=== PATIENT | male | born 1965 | race Caucasian/White ===

== ENCOUNTER → 2019-05-03 13:24 | Outpatient (CLI) | payer MEDICARE, MEDICAID, SELFPAY ==
[2019-05-03 13:40] LABS: Basophils % 0.4 % (0.1-2.0); Eosinophils # 0.2 K/mm3 (0.0-0.4); Eosinophils % 2.3 % (0.1-12.0); Hematocrit 50.6 % (42.0-52.0); Hemoglobin 16.3 g/dL (14.1-18.0); Lymphocytes # 2.7 K/mm3 (0.7-4.5); Lymphocytes % 36.1 % (10-50); Mean Corpuscular HGB Conc 32.2 g/dL (31.8-35.4); Mean Corpuscular Hemoglobin 32.6 pg (27.0-31.2); Mean Corpuscular Volume 101.2 fl (80-94); Mean Platelet Volume 8.8 fl (7.4-10.4); Monocytes # 0.5 K/mm3 (0.1-1.0); Neutrophils # 4.1 K/mm3 (1.8-7.8); Neutrophils % 55.2 % (37.0-80.0); Platelet Count 204 K/mm3 (142-424); Red Blood Count 4.99 M/mm3 (4.60-6.20); Red Cell Distribution Width 13.7 % (11.5-17.5); White Blood Count 7.5 K/mm3 (4.8-10.8)
[2019-05-03 15:12] LABS: Alanine Aminotransferase 74 U/L (12-78); Albumin Level 3.9 gm/dL (3.4-5.0); Albumin/Globulin Ratio 1.1 (1.1-1.8); Alkaline Phosphatase 104 U/L (46-116); Aspartate Amino Transferase 46 U/L (15-37); Bilirubin,Total 0.4 mg/dL (0.2-1.0); Blood Urea Nitrogen 9 mg/dL (7-18); Calcium 9.4 mg/dL (8.5-10.1); Carbon Dioxide 32 mmol/L (21.0-32.0); Chloride 97 mmol/L (98-107); Chol/HDL Ratio 3.5 (1-3.5); Cholesterol 174 mg/dL (140-200); Creatinine,Serum 0.78 mg/dL (0.70-1.30); Estimated Glomerular Filt Rate 104 ml/min (>60); GFR (African American) 126 ML/MIN (>60); Globulin 3.6 gm/dl (1.3-3.2); Glucose 121 mg/dL (74-106); HDL Cholesterol 50 mg/dL (27-67); LDL Cholesterol 109 mg/dL (0-130); Sodium 136 mmol/L (136-145); T4 (Thyroxine) 16.7 ug/dl (4.7-13.3); Thyroid Stimulating Hormone 1.94 uIU/ml (0.358-3.740); Total Protein,Serum 7.5 gm/dL (6.4-8.2); Triglycerides 75 mg/dL (30-200); VLDL Cholesterol 15 mg/dL (0-40)
[2019-05-04 09:15] LABS: Hep A Ab, IgM Negative (Negative); Hepatitis B Core Antibody IgM Negative (Negative); Hepatitis B Surface Antigen Negative (Negative)
[2019-05-04 17:14] LABS: Hepatitis C Antibody >11.0 s/co ratio (0.0-0.9); Vitamin D 25 Hydroxy 17.6 ng/mL (30.0-100.0)
== END ==
PROVIDERS: Visit Provider Nurse Practitioner Family
DX: R51 Headache (principal); R53.1 Weakness; R53.83 Other fatigue; I10 Essential (primary) hypertension; E55.9 Vitamin D deficiency, unspecified
CPT/HCPCS: 80053; 80061; 80074; 82652; 84436; 84443; 85025

== ENCOUNTER → 2019-05-18 11:52 | Outpatient (CLI) | payer MEDICARE, MEDICAID, SELFPAY ==
--- NOTE | 2019-05-18 12:10 | CT_ITS ---
PROCEDURE: CT CHEST WO CON CLINICAL INDICATION: dyspnea, chest pain COMPARISON: No exams were available for comparison TECHNIQUE: Axial images obtained with sagittal and coronal reformats. All CT scans at the facility use one or more dose reduction, viz: automated exposure control, ma/kV adjustment per patient size (including targeted exams where dose is matched to indication, i.e. head), or iterative reconstruction technique. FINDINGS: HEART: Unremarkable. Normal heart size. No significant pericardial effusion. There is moderate coronary artery calcification. MEDIASTINAL AND HILAR STRUCTURES: No mediastinal or hilar mass evident. No dominant adenopathy. AORTA: No acute finding. No thoracic aortic aneurysm or dissection evident LUNGS:There are small ill-defined opacities and peribronchial distribution in the superior segment right lower lobe suggesting acute focal pneumonia. There is a calcified granuloma in the lingula. PLEURAL SPACES: No significant effusion. No evidence of pneumothorax. BONY STRUCTURES: There mild degenerate changes lower thoracic spine and upper lumbar spine. LYMPH NODES: No enlarged lymph nodes evident. UPPER ABDOMEN: There is a hypodense lesion involving the right adrenal gland likely adrenal cyst or adenoma in view of the CT number, left adrenal gland is normal. ADDITIONAL FINDINGS: No other significant abnormalities. IMPRESSION: Findings most consistent with acute minimal pneumonia involving the superior segment right lower lobe Dictated by: Dr. Sd Tobar MD 05/18/2019 12:[address] Sd Tobar MD in [place] 05/18/2019 12:42
[2019-05-18 15:31] LABS: T4 (Thyroxine) 14.9 ug/dl (4.7-13.3); Thyroid Stimulating Hormone 0.65 uIU/ml (0.358-3.740)
[2019-05-18 16:58] LABS: Hemoglobin A1C 5.9 % (0.0-7.0)
[2019-05-20 19:08] LABS: Hepatitis C Genotype 1a (.)
== END ==
PROVIDERS: Nurse Practitioner Family; PCP Emergency Medicine; Visit Provider Internal Medicine Cardiovascular Disease
DX: F17.200 Nicotine dependence, unspecified, uncomplicated (principal); I10 Essential (primary) hypertension; R06.09 Other forms of dyspnea; R07.9 Chest pain, unspecified; R94.31 Abnormal electrocardiogram [ECG] [EKG]; Z82.49 Family history of ischemic heart disease and other diseases of the circulatory system; R74.8 Abnormal levels of other serum enzymes; R73.9 Hyperglycemia, unspecified
CPT/HCPCS: 36415; 71250; 83036; 84436; 84443; 87522

== ENCOUNTER → 2019-05-30 06:16 | Outpatient (CLI) | payer MEDICARE, MEDICAID, SELFPAY | PROVIDERS: PCP Emergency Medicine; Visit Provider Internal Medicine Cardiovascular Disease | DX: R06.09 Other forms of dyspnea; R07.9 Chest pain, unspecified | CPT/HCPCS: A9502 ==

== ENCOUNTER → 2023-06-14 15:15 | Outpatient (CLI) | payer MEDICARE, SELFPAY ==
[2023-06-14 20:29] LABS: Amphetamine/Metha Screen,Urine Negative ng/ml (<1000)
[2023-06-14 20:30] LABS: Barbiturates Screen,Urine Negative ng/ml (<200)
[2023-06-14 20:31] LABS: Cannabinoid Screen,Urine Positive ng/ml (<50)
[2023-06-14 20:32] LABS: Cocaine Screen,Urine Negative ng/ml (<300); Methadone Screen,Urine Negative ng/ml (<300)
[2023-06-14 20:33] LABS: Opiate Screen,Urine Negative ng/ml (<300)
[2023-06-14 20:34] LABS: Phencyclidine Screen,Urine Negative ng/ml (<25)
[2023-06-14 20:43] LABS: Benzodiazepines Screen,Urine Negative ng/ml (<200); Microalbumin/Creatinine Ratio 71.5
[2023-06-14 20:52] LABS: Creatinine,Urine Random 20 mg/dL (Not Estab.)
== END ==
LOC: LAB.DROPOF 06-27 15:16
PROVIDERS: PCP Internal Medicine; Visit Provider Internal Medicine
DX: Z79.899 Other long term (current) drug therapy; I10 Essential (primary) hypertension; Z72.0 Tobacco use
CPT/HCPCS: 80307; 82043; 82570

== ENCOUNTER → 2023-07-12 18:27 | Outpatient (CLI) | payer MEDICARE, SELFPAY ==
[2023-07-12 17:54] LABS: Benzodiazepines Screen,Urine Negative ng/ml (<200)
[2023-07-12 17:55] LABS: Barbiturates Screen,Urine Negative ng/ml (<200)
[2023-07-12 17:56] LABS: Cannabinoid Screen,Urine Positive ng/ml (<50); Methadone Screen,Urine Negative ng/ml (<300)
[2023-07-12 17:57] LABS: Cocaine Screen,Urine Negative ng/ml (<300)
[2023-07-12 17:58] LABS: Opiate Screen,Urine Negative ng/ml (<300)
[2023-07-12 17:59] LABS: Phencyclidine Screen,Urine Negative ng/ml (<25)
[2023-07-12 18:11] LABS: Amphetamine/Metha Screen,Urine Negative ng/ml (<1000)
== END ==
PROVIDERS: PCP Nurse Practitioner Family; Visit Provider Nurse Practitioner Family
DX: Z79.899 Other long term (current) drug therapy (principal)
CPT/HCPCS: 80305

== ENCOUNTER → 2023-08-25 08:40 | Outpatient (POV) | payer MEDICARE, SELFPAY ==
--- NOTE | 2023-08-25 09:31 | EXP.PAIN.OV ---
HPI Data of Consult Patient: new to practice Consult date: 08/25/23 Requesting Physician: Karen Pelayo APRN Primary Care Provider: Rafael Swenson DO Consult Narrative Reason for consult: Low back pain, hip pain History of present illness: Mr. Castro is a 57 year old male who presents today as a new patient. He is a referral from Dr. Do's office. Today he rates his pain a 9 out of 10. Patient states his pain is all in his low back send denies radiating symptoms into his legs. He states that it will go into his hips. He states sitting makes his pain worse and does describe it as a sharp achy sensation with numbness. He states prolonged walking seems to irritate it and that he frequently cannot sleep due to the pain. He states the pain is always low on his back around his belt area. Patient states his pain has been going on for years unrelated to any specific injury or trauma. Patient states he has tried [id number] Tylenol and ibuprofen along with heat and ice and topicals with minimal relief. Patient states that he is not able to tolerate physical therapy due to very limited range of motion and pain. Patient did previously have a cervical [place] [address] Soto. Patient denies any recent imaging. Patient states he does not have any history of heart or kidney related problems. Patient is currently managed with oxycodone 5 mg 3 times a day and gabapentin 300 mg 3 times a day from his primary care provider along with Flexeril 10 mg 3 times daily as needed. Patient denies any side effects from this medication. His Ori has been reviewed and is appropriate. CC: Karen Pelayo APRN [facility] Disclaimer: The information contained in this section may have been updated after the patient was seen, as this information can be updated by other users. Social History Smoking Status: Current every day smoker tobacco type: cigarettes packs per day: 1 alcohol intake: never substance use type: marijuana and opiates current occupational status: unemployed and disabled Travel in the last 8 weeks: Inside the [place] Review of Systems Review of Systems Review of systems:: pertinent systems reviewed and negative unless documented below Review of systems (narrative): Review of Systems: General: No recent weight changes, no fever, no sleep disturbances Respiratory: No cough, no shortness of air, no recurring pulmonary infections Cardiovascular/peripheral vascular: No chest pain, no palpitations, no edema, no shortness of breath Gastrointestinal: No new onset incontinence, normal bowel movements reported Genitourinary: No new onset incontinence Musculoskeletal: Low back pain, hip pain Psychiatric: [Normal mood/affect] Neurological: [Denies weakness in extremities], [denies balance issues] Meds Home Medications and Allergies Home Medications Medication Instructions Recorded Confirmed Type cholecalciferol (vitamin D3) 125 125 mcg PO DAILY 90 days #90 caps 06/14/23 08/08/23 Rx mcg (5,000 unit) capsule losartan 25 mg tablet 25 mg PO DAILY 90 days #90 tabs 07/12/23 08/08/23 Rx cyclobenzaprine 10 mg tablet 10 mg PO TID PRN muscle spasm #60 08/09/23 08/09/23 Rx tabs gabapentin 300 mg capsule 300 mg PO TID 30 days #90 caps 08/09/23 08/09/23 Rx oxycodone 5 mg tablet 5 mg PO Q8H PRN chronic back pain 08/09/23 08/09/23 Rx 23 days #69 tabs New Prescriptions to Start Prescriptions: Allergies Allergy/AdvReac Type Severity Reaction Status Date / Time tramadol [TRAMADOL] Allergy Mild NA-NAUSEA/V Verified 08/08/23 14:07 OMITING Objective Narrative: Physical Exam: General: Alert and oriented x3, no acute distress, pleasant and cooperative Lungs: Respirations even and unlabored, symmetrical chest expansion Eyes: PERRL Musculoskeletal: Flexion and extension of lumbar [spine] somewhat guarded secondary to pain, [antalgic gait noted] extreme point tenderness along bilateral SIs with positive bilateral Toño's, Jennifer's, Gaenslen's, compression and distraction exam, positive Kemps sign Neurological: Speech clear, no gross sensory deficit Assessment and Plan *Assessment and plan (1) Low back pain: Problem Comment: Will refill his gabapentin. Additionally he is on oxycodone and cyclobenzaprine. I am concerned about the use of the scheduled medications and individual does have a past history of substance abuse. However I also feel that he has real pain. Will do a random pill count as well as a urine drug screen on him. Status: Acute Qualifiers: Chronicity: chronic Back pain laterality: bilateral Sciatica presence: with sciatica Sciatica laterality: bilateral sciatica Qualified Code(s): M54.42 - Lumbago with sciatica, left side; M54.41 - Lumbago with sciatica, right side; G89.29 - Other chronic pain Category: Medical Code(s): M54.50 - Low back pain, unspecified (2) Bilateral sacroiliitis: Status: Acute Category: Medical Code(s): M46.1 - Sacroiliitis, not elsewhere classified Plan Patient is experiencing significant pain in his low back and hips with limited range of motion. Patient did have extreme point tenderness along his bilateral SIs and a positive bilateral Toño's, Jennifer's, Gaenslen's, compression extraction exam as well as a positive Kemps test. I have discussed with the patient that I do believe he would get beneficial relief with bilateral SI injections. Risk and benefits were discussed with the patient however he is not interested in this option. Patient states that he does not care for needles. I have discussed with the patient that I will send in a 14-day supply of meloxicam 15 mg daily. Patient has been counseled to discontinue all other NSAIDs while taking this medication and to take it with food to minimize GI upset. Patient will return to clinic in 2 weeks for reevaluation of symptoms and plan of care. Patient has been instructed to contact the clinic with any concerns before the next appointment. Dr. Vincent has reviewed this note and agrees with this plan of care. This note was dictated using voice recognition software and make contain errors or omissions.
[2023-08-25 09:48] VITALS: BP 185/99; PULSE 112; RESP 18; O2SAT 99; BMI 24.3
== END ==
LOC: SC.PAIN 08:43
PROVIDERS: PCP Internal Medicine; Visit Provider Nurse Practitioner Family
DX: M54.42 Lumbago with sciatica, left side (principal); M54.41 Lumbago with sciatica, right side; G89.29 Other chronic pain; M46.1 Sacroiliitis, not elsewhere classified
CPT/HCPCS: 99202; G0463

== ENCOUNTER 2023-10-06 14:41 | Emergency (ER) | payer MEDICARE, SELFPAY ==
[2023-10-06] VITALS (7 sets, daily range): BP systolic 104–126; BP diastolic 61–80; PULSE 107–123; RESP 16–22; TEMP 36.9–37.1; O2SAT 89–99; BMI 23.8
--- NOTE | 2023-10-06 15:19 | CT_ITS ---
FINAL REPORT CLINICAL HISTORY: legs weak COMPARISON: None FINDINGS: CT LUMBAR SPINE WITH CONTRAST TECHNIQUE: Axial images were performed through the lumbar spine by computed tomography after the injection of intrathecal contrast. Sagittal and coronal reconstruction images were also performed. This study was performed with techniques to keep radiation doses as low as reasonably achievable, (ALARA). Individualized dose reduction techniques using automated exposure control or adjustment of mA and/or kV according to the patient's size were employed. There is moderate degenerative change. Multilevel osteophytes are noted. T12-L1: Annular disc bulge, facet arthropathy, and osteophytes. Mild bilateral neuroforaminal narrowing. L1-L2: Annular disc bulge, facet arthropathy, and osteophytes. Mild bilateral neuroforaminal narrowing. L2-L3: Annular disc bulge, facet arthropathy, and osteophytes. Mild right and severe left neuroforaminal narrowing. L3-L4: Annular disc bulge, facet arthropathy, and osteophytes. Moderate bilateral neuroforaminal narrowing. Mild central canal stenosis with AP diameter of the thecal sac of 7 mm. L4-L5: Annular disc bulge, facet arthropathy, and osteophytes. Severe bilateral neuroforaminal narrowing. Mild central canal stenosis with AP diameter of the thecal sac of 7 mm. L5-S1: Annular disc bulge, facet arthropathy, and osteophytes. Mild bilateral neuroforaminal narrowing. There is a 2.4 cm right adrenal mass with nonspecific appearance. There is a questionable mass medial liver. IMPRESSION: Multilevel degenerative disc disease as above. Central canal stenosis at L3-4 and L4-5. 2.4 cm right adrenal mass, differential includes adenoma versus metastasis and questionable liver mass. Recommend adrenal mass protocol CT for further evaluation. Reviewed, Interpreted and Dictated by Jonas Diez III, MD Transcribed by Nita Harrison Authenticated and [facility]
--- NOTE | 2023-10-06 15:21 | HMH.EDGENADL ---
Discharge Plan Disposition Patient Disposition: Xfer Short-Term Hosp Chief Complaint: Weakness Prescriptions Prescriptions: No Action cyclobenzaprine 10 mg tablet 10 mg PO TID PRN (Reason: muscle spasm) Qty: 60 0RF gabapentin 300 mg capsule 300 mg PO TID 30 Days Qty: 90 1RF losartan 25 mg tablet 25 mg PO DAILY 90 Days Qty: 90 1RF oxycodone 5 mg tablet 5 mg PO Q4-6H PRN (Reason: chronic back pain) 30 Days Qty: 120 0RF cholecalciferol (vitamin D3) 125 mcg (5,000 unit) capsule 125 mcg PO DAILY 90 Days Qty: 90 2RF Referrals Follow up/Referrals: Provider,Referral, [Referring] - See instructions Clinical Impressions Clinical Impression: Bilateral leg weakness, Rhabdomyolysis, Acute UTI Discharge ED Provider: Smith Berrios General Adult HPI General Chief complaint: Weakness Stated complaint: GENERALIZED WEAKNESS Time Seen by Provider: 10/06/23 15:01 History of Present Illness HPI narrative: This is a 57-year-old male with history of hypertension, hyperlipidemia, hepatitis C secondary to IV drug abuse in the remote past, chronic lower back pain presenting with weakness. Patient states he has been feeling generally weak over the past couple of days. States that he laid on his bathroom floor for the past 24 hours and was basically just crawling around because he felt so weak all over. States that his left knee feels weaker than his right knee, but denies loss of function. Also denies bowel or bladder dysfunction or saddle anesthesia. Has had associated bilateral upper extremity pain near his biceps, but again, no weakness or loss of function. Has not had any recent injuries, falls, or trauma in any other degree. No fevers, chills, shortness of breath, or any other concerns. Related Data Previous Rx's Medication Instructions Recorded cholecalciferol (vitamin D3) 125 125 mcg PO DAILY 90 days #90 caps 06/14/23 mcg (5,000 unit) capsule cyclobenzaprine 10 mg tablet 10 mg PO TID PRN muscle spasm #60 10/04/23 tabs gabapentin 300 mg capsule 300 mg PO TID 30 days #90 caps 10/04/23 losartan 25 mg tablet 25 mg PO DAILY 90 days #90 tabs 10/04/23 oxycodone 5 mg tablet 5 mg PO Q4-6H PRN chronic back 10/04/23 pain 30 days #120 tabs Allergies Allergy/AdvReac Type Severity Reaction Status Date / Time tramadol [TRAMADOL] Allergy Mild NA-NAUSEA/V Verified 10/03/23 12:59 OMITING PFSH PFSH Disclaimer: The information contained in this section may have been updated after the patient was seen, as this information can be updated by other users. Medical History (Updated 10/06/23 @ 19:45 by Smith Berrios MD) History of substance abuse Vitamin D deficiency HTN (hypertension) Hepatitis C Surgical History H/O cervical spinal arthrodesis Family History Other Unknown family medical history Social History Smoking Status: Current every day smoker tobacco type: cigarettes packs per day: 1 alcohol intake: never substance use type: marijuana and opiates current occupational status: unemployed Travel in the last 8 weeks: None ROS Obtained: Yes All systems reviewed & no additional complaints except as documented Physical Exam General General appearance: alert and in no apparent distress Comment: Disheveled, unkempt Head Head exam: atraumatic and normocephalic Eye Eye exam: Present normal appearance, PERRL and EOMI ENT ENT exam: Present mucous membranes dry Neck Neck exam: Present normal inspection, full ROM and trachea midline Respiratory Respiratory exam: Present normal lung sounds bilaterally; Absent respiratory distress, wheezes, stridor, accessory muscle use or prolonged expiratory phase Cardiovascular Cardiovascular exam: Present normal rhythm and tachycardia Abdominal Exam Abdominal exam: Present soft; Absent distention, tenderness, guarding, rebound or rigidity Extremities Exam Extremities exam: Absent edema Back Exam Back exam: Present tenderness (T and L-spine) Neurological Exam Neurological exam: Present alert, oriented X3, CN II-XII intact and normal gait; Absent motor sensory deficit Skin Skin exam: Present warm and dry; Absent diaphoresis or erythema Medical Decision Making Medical Records Medical records reviewed: Yes I reviewed the patient's medical records. Ori Inquiry Pt receiving controlled substance: No Ori was queried for this patient: No Vital Signs: 10/06/23 14:42 10/06/23 15:06 10/06/23 15:30 Temperature 98.8 F Temperature Source Oral Pulse Rate 120 H 117 H Pulse Rate [Right] 123 H Respiratory Rate 17 22 Blood Pressure 104/68 L 126/80 Blood Pressure [Right Arm] 104/68 L Blood Pressure Mean 95 Blood Pressure Mean [Right Arm] 80 02 Sat by Pulse Oximetry 89 L 96 96 Oxygen Delivery Method Room Air Room Air Room Air 10/06/23 16:30 Temperature Temperature Source Pulse Rate 107 H Pulse Rate [Right] Respiratory Rate Blood Pressure 104/61 L Blood Pressure [Right Arm] Blood Pressure Mean Blood Pressure Mean [Right Arm] 02 Sat by Pulse Oximetry 99 Oxygen Delivery Method Room Air Lab Data Lab Results 10/06/23 14:55: WBC 17.9 H, RBC 5.03, Hgb 17.1, Hct 51.7, MCV 102.7 H, MCH 34.1 H, MCHC 33.2, RDW 13.6, Plt Count 151, MPV 8.8, Neut % (Auto) 87.3 H, Lymph % (Auto) 6.0 L, [place] % (Auto) 5.4, Eos % (Auto) 0.9, Baso % (Auto) 0.4, Neut # (Auto) 15.6 H, Lymph # (Auto) 1.1, [place] # (Auto) 1.0, Eos # (Auto) 0.2, Baso # (Auto) 0.1, Total Counted 100, Neutrophils % (Manual) 85 H, Lymphocytes % (Manual) 11, Monocytes % (Manual) 4, Platelet Estimate Normal, RBC Morphology Normal, ESR 10, Sodium 134 L, Potassium 4.9, Chloride 97 L, Carbon Dioxide 30, Anion Gap 11.9, BUN 17, Creatinine 0.90, Estimated Creat Clear 91, Estimated GFR 87, Est GFR ( Amer) 105, Glucose 112 H, Lactate 2.0, Calcium 9.6, Magnesium 1.9, Total Bilirubin 2.0 H, AST 132 H, ALT 50, Alkaline Phosphatase 99, Total Creatine Kinase 35731 H*, C-Reactive Protein 59.3 H, Total Protein 7.5, Albumin 4.6, Globulin 2.9, Albumin/Globulin Ratio 1.6, TSH 0.26 L, Thyroxine (T4) 18.5 H, Urine Color Karen, Urine Appearance Clear, Urine pH 6.5, Ur Specific [place] 1.025, Urine Protein 2+, Urine Glucose (UA) Negative, Urine Ketones 1+, Urine Blood 3+, Urine Nitrate Positive, Urine Bilirubin 2+ A, Urine Urobilinogen >=8.0, Ur Leukocyte Esterase Negative, Urine RBC 5-10, Urine WBC None, Ur Squamous Epith Cells None, Urine Bacteria Trace 10/06/23 14:55 10/06/23 14:55 Orders (Tests/Meds): ED MEDICATIONS Generic Name Dose Route Start Last Admin Trade Name Bk PRN Reason Stop Dose Admin Ceftriaxone Sodium 1 gm/ 50 mls @ 100 mls/hr 10/06/23 19:16 10/06/23 19:31 Sodium Chloride IV 10/06/23 19:45 100 mls/hr ONCE ONE Administration Sodium Chloride 1,000 mls @ 150 mls/hr 10/06/23 19:30 10/06/23 19:31 Sod Chlor 0.9% 1000ml Bag IV 11/05/23 19:29 150 mls/hr .Q6H40M BRIAN Administration Sodium Chloride 10 ml 10/06/23 16:05 10/06/23 16:06 Sodium Chloride 0.9% 10ml Syr (Rad Only) IV 11/05/23 16:04 10 ml NEEDED PRN Administration Maintain IV Site Sodium Chloride 10 ml 10/06/23 16:59 Sodium Chloride 0.9% 10ml Vial IV 11/05/23 16:58 NEEDED PRN to Dilute Lorazepam inj Discontinued Medications Generic Name Dose Route Start Last Admin Trade Name Bk PRN Reason Stop Dose Admin Aspirin 324 mg 10/06/23 15:17 10/06/23 15:36 Aspirin 81mg Chewable Tablet PO 10/06/23 15:18 324 mg ONCE ONE Administration Diazepam 2 mg 10/06/23 16:51 10/06/23 17:01 Diazepam 2mg Tablet PO 10/06/23 16:52 2 mg ONCE ONE Administration Gadoteridol 14 ml 10/06/23 18:33 10/06/23 18:34 Gadoteridol Inj 17ml Syringe IV 10/06/23 18:34 14 ml ONCE ONE Administration Lactated Ringer's 1,000 mls @ 999 mls/hr 10/06/23 15:19 10/06/23 15:36 Lactated Ringer's 1000 Ml Bag IV 10/06/23 16:19 999 mls/hr .Q1H1M ONE Administration Lactated Ringer's 1,000 mls @ 150 mls/hr 10/06/23 17:15 10/06/23 19:37 Lactated Ringer's 1000 Ml Bag IV 11/05/23 17:14 Not Given .Q6H40M BRIAN Iopamidol 75 ml 10/06/23 16:05 10/06/23 16:06 Iopamidol-370 (76%);100ml Bottle IV 10/06/23 16:06 75 ml ONCE ONE Administration Lorazepam 0.5 mg 10/06/23 16:59 10/06/23 17:01 Lorazepam 2mg/Ml Vial IV 10/06/23 17:00 0.5 mg ONCE ONE Administration Sodium Chloride 10 ml 10/06/23 18:33 10/06/23 18:34 Sodium Chloride 0.9% 10ml Syr (Rad Only) IV 10/06/23 18:34 10 ml ONCE ONE Administration ORDERS Category Date Time Status CT lumbar spine w con Stat Cat Scan 10/06/23 15:19 Completed XR orbit bilateral min 4V Stat Exams 10/06/23 16:04 Completed CK [Creatine Kinase] Stat Lab 10/06/23 14:55 Completed CRP [C-Reactive Protein] Stat Lab 10/06/23 14:55 Completed Complete Blood Count Auto Diff Stat Lab 10/06/23 14:55 Completed Comprehensive Metabolic Panel Stat Lab 10/06/23 14:55 Completed ESR [Erythrocyte Sedimentation Rate] Stat Lab 10/06/23 14:55 Completed Lactic Acid Stat Lab 10/06/23 14:55 Completed Magnesium Stat Lab 10/06/23 14:55 Completed T4 (Thyroxine) Stat Lab 10/06/23 14:55 Completed TSH [Thyroid Stimulating Hormone] Stat Lab 10/06/23 14:55 Completed Troponin I Q3H Lab 10/06/23 19:26 Received Troponin I Q3H Lab 10/06/23 21:30 Ordered UA [Urinalysis and Microscopic] Stat Lab 10/06/23 14:55 Completed Blood Culture Stat Micro 10/06/23 14:55 Received Medical Decision Narrative: This is a 57-year-old male with history of hypertension, hyperlipidemia, hepatitis C secondary to IV drug abuse in the remote past, chronic lower back pain presenting with weakness. Patient states he has been feeling generally weak over the past couple of days. States that he laid on his bathroom floor for the past 24 hours and was basically just crawling around because he felt so weak all over. States that his left knee feels weaker than his right knee, but denies loss of function. Also denies bowel or bladder dysfunction or saddle anesthesia. Has had associated bilateral upper extremity pain near his biceps, but no weakness or loss of function. Has not had any recent injuries, falls, or trauma in any other degree. No fevers, chills, shortness of breath, or any other concerns. History was obtained via conversation with patient. On arrival, patient hemodynamically stable, alert, oriented x4, appropriate, GCS 15, moving all extremities spontaneously, pupils equal and reactive to light. Full physical exam performed and significant for patient standing with difficulty on my initial evaluation. Holding onto the bed to attempt to urinate. Attempted to urinate while I was in the room, but unable. Bladder scan with 200 mL. Neuroexam 4 out of 5 strength bilateral lower extremities. Rectal tone intact, no evidence of saddle anesthesia. 5 out of 5 strength upper extremities. Differential includes discitis, epidural hematoma, epidural abscess, cauda equina, conus medullaris, spinal stenosis, aortic pathology, vascular compromise, among others. Patient was given 1 mg IV Ativan, 2 mg p.o. Valium for MRI for symptomatic management and correction of underlying abnormalities. Workup independently interpreted and significant for Mild hyponatremia 134. LFTs with mild hyperbilirubinemia 2.0 AST elevated at 132. Alkaline phosphatase normal. CRP is elevated at 60. Thyroid studies with hyperthyroidism TSH low at 0.26 and T4 elevated at 18.5. CK greater than 11,000. Orbital x-rays negative, patient denies any metal in his body elsewhere. MRI of the thoracic and lumbar spines were ordered due to patient history of IV drug abuse and lower extremity weakness. At this institution, protocol dictates I am not able to get full spinal MRI, so thoracic and lumbar spines were pursued at this time. MRI of the thoracic and lumbar spine with no thoracic stenosis, but severe L4/L5 stenosis without obvious cord edema. See radiology read for full review of final results. On reevaluation, patient given ceftriaxone given urinary tract infection on UA. [facility] was contacted and case was discussed with ER provider on-call. Graciously excepted transfer. Given patient presentation, workup, history, this most likely represents lower extremity weakness and UTI in the setting of lumbar spinal cord compression and resultant rhabdomyolysis secondary to weakness and immobility. Because patient high risk for clinical decompensation if discharged, deemed appropriate for transfer and inpatient admission. Results were relayed to patient who voiced understanding and patient was agreeable to transfer, inpatient admission, and management. Patient was graciously accepted and transferred to [facility] for further definitive management, under Dr. Beard. Critical Care Critical Care Time Critical Care Time: Yes (neuro) Attestation: On 10/06/23, the high probability of a clinically significant, sudden or life threatening deterioration of the following system(s) required my full and direct attention, intervention and personal management. The time I documented below is in addition to time spent performing reported procedures but includes the following listed in this critical care notation. Total Time Total Critical Care Time: 60
[2023-10-06 15:28] LABS: Basophils # 0.1 K/mm3 (0-0.2); Basophils % 0.4 % (0.1-2.0); Eosinophils # 0.2 K/mm3 (0.0-0.4); Eosinophils % 0.9 % (0.1-12.0); Hematocrit 51.7 % (42.0-52.0); Hemoglobin 17.1 g/dL (14.1-18.0); Lymphocytes # 1.1 K/mm3 (0.7-4.5); Mean Corpuscular HGB Conc 33.2 g/dL (31.8-35.4); Mean Corpuscular Hemoglobin 34.1 pg (27.0-31.2); Mean Corpuscular Volume 102.7 fl (80-94); Mean Platelet Volume 8.8 fl (7.4-10.4); Monocytes % 5.4 % (1.7-9.3); Neutrophils # 15.6 K/mm3 (1.8-7.8); Neutrophils % 87.3 % (37.0-80.0); Platelet Count 151 K/mm3 (142-424); Red Blood Count 5.03 M/mm3 (4.60-6.20); Red Cell Distribution Width 13.6 % (11.5-17.5); White Blood Count 17.9 K/mm3 (4.8-10.8)
[2023-10-06 15:35] LABS: Alanine Aminotransferase 50 U/L (12-78); Albumin Level 4.6 g/dl (3.5-5.0); Albumin/Globulin Ratio 1.6 (1.1-1.8); Alkaline Phosphatase 99 U/L (38-126); Anion Gap 11.9 mEq/L (5-15); Aspartate Amino Transferase 132 U/L (17-59); Blood Urea Nitrogen 17 mg/dl (9-20); Calcium 9.6 mg/dl (8.4-10.2); Carbon Dioxide 30 mmol/L (22.0-30.0); Chloride 97 mmol/L (98-107); Creatinine Clearance Estimated 91 mL/min (50-200); Estimated Glomerular Filt Rate 87 ml/min (>60); GFR (African American) 105 ML/MIN (>60); Globulin 2.9 g/dL (1.3-3.2); Glucose 112 mg/dl (74-100); Magnesium 1.9 mg/dl (1.6-2.3); Potassium 4.9 mmoL/L (3.5-5.1); Sodium 134 mmol/L (136-145); Total Protein,Serum 7.5 g/dl (6.3-8.2)
[2023-10-06] MEDS: ASPIRIN 81MG CHEWABLE TABLET 324 MG PO (15:36)
[2023-10-06] MEDS: LACTATED RINGERS 1000ML 1,000 ML 999 ML IV (15:36)
[2023-10-06 15:43] LABS: MANUAL DIFFERENTIAL MANUAL DIFFERENTIAL (MANUAL DIFF)
[2023-10-06 15:53] LABS: T4 (Thyroxine) 18.5 ug/dl (5.53-11.0)
--- NOTE | 2023-10-06 16:03 | MR_ITS ---
PROCEDURE INFORMATION: Exam: MR Thoracic Spine Without and With Contrast Exam date and time: 10/06/2023 4:33 PM Age: 57 years old Clinical indication: Weakness; Additional info: Diffuse weakness, ivdu, history of abscesses TECHNIQUE: Imaging protocol: Magnetic resonance imaging of the thoracic spine without and with contrast. Contrast material: PROHACNE; Contrast volume: 14 ml; Contrast route: IV; COMPARISON: FINDINGS: Patient motion. Vertebral body height and AP alignment is preserved. Multilevel disc desiccation. Negative for discitis/osteomyelitis. No epidural fluid collection. No pathologic cord signal or cord expansion. No pathologic intrathecal enhancement. C7-T1: Disc bulge with facet joint hypertrophy and posterior buckling of ligamentum flavum contributing to moderate central canal stenosis. Mild degenerative disc disease involving remainder of the thoracic spine without additional level of significant central canal compromise. IMPRESSION: 1. No acute abnormality involving the thoracic spine. 2. Degenerative change contributing to moderate central canal stenosis at C7-T1. 3. Mild degenerative disc disease of the remaining thoracic spine without central canal compromise.
--- NOTE | 2023-10-06 16:04 | XR_ITS ---
PROCEDURE INFORMATION: Exam: XR Orbits, MR Screening Exam date and time: 10/06/2023 4:37 PM Age: 57 years old Clinical indication: Screening exam; R/O foreign body for emergent mri; Patient HX: Please read stat. ; Additional info: Eval for fb TECHNIQUE: Imaging protocol: XR of the orbits. Exam was performed for MR screening. Views: 1 or 2 views COMPARISON: No relevant prior studies available. FINDINGS: Sinuses: Grossly aerated. Bones/joints: No acute osseous abnormality. Soft tissues: Unremarkable. Radiopaque device or foreign body: No radiopaque device or foreign body. No visible contraindication for MRI on this exam. IMPRESSION: No radiopaque device or foreign body. No visible contraindication for MRI on this exam.
[2023-10-06 16:06] LABS: Lymphocytes % 11 % (10-50); Monocytes % 4 % (2-9); Neutrophils % 85 % (42-76); Platelet Estimate Normal; RBC Morphology Normal; Total Cells Counted 100
[2023-10-06] MEDS: IOPAMIDOL-370 (76%);100ML BOTTLE 75 ML IV (16:06)
[2023-10-06] MEDS: SODIUM CHLORIDE 0.9% 10ML SYR (RAD ONLY) 10 ML IV ×2 (16:06→18:34)
[2023-10-06 16:07] LABS: Thyroid Stimulating Hormone 0.26 uIU/mL (0.465-4.68)
--- NOTE | 2023-10-06 16:09 | PC.NURSE ---
spoke with care management for approval of MRI, approval given
--- NOTE | 2023-10-06 16:11 | PC.NURSE ---
spoke with jacklyn in MRI for scans. MD HER wants entire spine MRI with and without contrast. care management approved MRI.
--- NOTE | 2023-10-06 16:20 | PC.NURSE ---
patient bladder scanned: 189 ml noted in bladder.
--- NOTE | 2023-10-06 16:24 | MR_ITS ---
PROCEDURE INFORMATION: Exam: MR Lumbar Spine Without and With Contrast Exam date and time: 10/06/2023 4:33 PM Age: 57 years old Clinical indication: Weakness; Additional info: Legweakness TECHNIQUE: Imaging protocol: Magnetic resonance imaging of the lumbar spine without and with contrast. Contrast material: PROHANCE; Contrast volume: 14 ml; Contrast route: IV; COMPARISON: CT LUMBAR SPINE W CON 10/06/2023 3:55 PM FINDINGS: Vertebral body height and AP alignment is preserved. Multilevel disc desiccation with disc space narrowing greatest at L1-L2, severe. Negative for discitis/osteomyelitis. No epidural fluid collection. Conus medullaris terminates at T12-L1. No pathologic intrathecal enhancement. L1-L2: Oamq-mx-hvbqrhgt disc osteophyte complex and mild bilateral facet joint arthropathy. There is mild right foraminal stenosis without significant central canal stenosis. L2-L3: Disc bulge with superimposed left foraminal protrusion and mild bilateral facet joint arthropathy. No significant central canal stenosis. There is wbsz-be-jzdkknbb left foraminal stenosis. L3-L4: Mild disc bulge with mild bilateral facet joint arthropathy contributing to borderline central canal stenosis and mild left foraminal stenosis. L4-L5: Moderate disc osteophyte complex with moderate to severe right and moderate left facet joint arthropathy. Posterior laxity of ligamentum flavum. Findings result in severe central canal stenosis and moderate to severe bilateral foraminal stenosis. L5-S1: Mild disc bulge with ikjt-av-iiofpvrx facet joint arthropathy. No significant central or foraminal stenosis. IMPRESSION: Lumbar degenerative change as above greatest at L4-L5 where there is severe central canal stenosis and moderate to severe bilateral foraminal stenosis.
--- NOTE | 2023-10-06 16:24 | PC.NURSE ---
spoke with jacklyn in MRI, orders changed to reflect correct scans. rad notified of orbital xray.
[2023-10-06 16:32] LABS: C-Reactive Protein 59.3 mg/L (0-4)
[2023-10-06 16:37] LABS: Erythrocyte Sedimentation Rate 10 mm/hr (0-20)
--- NOTE | 2023-10-06 16:46 | PC.NURSE ---
PT GONE TO XRAY
[2023-10-06 16:59] LABS: Microscopic, Urine URINE MICROSCOPIC (MICROSCOPIC)
[2023-10-06] MEDS: LORazepam 2MG/ML VIAL 0.5 MG IV (17:01)
[2023-10-06] MEDS: diazePAM 2MG TABLET 2 MG PO (17:01)
[2023-10-06 17:04] LABS: Creatine Kinase 11773 U/L (55-170)
--- NOTE | 2023-10-06 17:08 | PC.NURSE ---
pt to MRI
[2023-10-06 17:27] LABS: Appearance,Urine CLEAR (Clear); Blood, Urine 3+ (Negative); Color,Urine AMBER (Yellow); Glucose,Urine (UA) Negative (Negative); Ketones,Urine 1+ (Negative); Leukocyte Esterase,Urine Negative (Negative); Nitrate,Urine POSITIVE (Negative); PH,Urine 6.5 (5.0-8.5); Protein,Urine 2+ (Negative); Specific Gravity, Urine 1.025 (1.005-1.030); Urobilinogen,Urine >=8.0 EU/dl (0.2)
[2023-10-06 17:30] LABS: Bilirubin,Urine 2+ (Negative)
[2023-10-06 17:49] LABS: Bacteria,Urine Trace /lpf
[2023-10-06] MEDS: GADOTERIDOL INJ 17ML SYRINGE 14 ML IV (18:34)
--- NOTE | 2023-10-06 19:07 | PC.NURSE ---
pt back to room
--- NOTE | 2023-10-06 19:10 | PC.NURSE ---
pt back to room after mri
--- NOTE | 2023-10-06 19:23 | PC.NURSE ---
CALLING [facility] FOR [facility] OR SPINE SURGEON SHELLFISH SHUCKER PER
--- NOTE | 2023-10-06 19:29 | PC.NURSE ---
talking to Venancio at at this time.
--- NOTE | 2023-10-06 19:29 | PC.NURSE ---
Attending MD speaking to [facility]
[2023-10-06] MEDS: CEFTRIAXONE SODIUM 1 GM in 0.9 % SODIUM CHLORIDE 50 ML IV (19:31)
[2023-10-06] MEDS: 0.9 % SODIUM CHLORIDE 1000ML 1,000 ML 150 ML IV (19:31)
--- NOTE | 2023-10-06 19:37 | PC.NURSE ---
Rounded on patient, no needs voiced at this time.
--- NOTE | 2023-10-06 19:43 | PC.NURSE ---
called [facility] for transportation at this time.
--- NOTE | 2023-10-06 19:48 | PC.NURSE ---
report called to BEN Landon at [facility].
[2023-10-06 20:01] LABS: Troponin I 0.04 ng/ml (0.00-0.034)
--- NOTE | 2023-10-06 20:22 | ECG_ITS ---
APPROVED REPORT Exam: Resting ECG HR:109 bpm ECG Measurements Heart Rate 109 AXES GA 123 P 53 QRSd 97 QRS 71 QT 328 T 38 QTc 392 Conclusion SINUS TACHYCARDIA Electronically signed by : ESTEFANY HER, 10/06/2023 23:14:46
--- NOTE | 2023-10-06 20:31 | PC.NURSE ---
EMS arrived for patient transport to [facility]. Report given to Ted granulating machine operator
== END 2023-10-06 20:42 | disposition short-term general hospital (02) ==
PROVIDERS: Emergency Provider Emergency Medicine; PCP Internal Medicine
DX: N39.0 Urinary tract infection, site not specified (principal); R74.8 Abnormal levels of other serum enzymes; M62.82 Rhabdomyolysis; M48.061 Spinal stenosis, lumbar region without neurogenic claudication; R00.0 Tachycardia, unspecified; R29.898 Other symptoms and signs involving the musculoskeletal system; R53.1 Weakness; F17.210 Nicotine dependence, cigarettes, uncomplicated; I10 Essential (primary) hypertension; E78.5 Hyperlipidemia, unspecified; B19.20 Unspecified viral hepatitis C without hepatic coma
CPT/HCPCS: 36415; 51702; 70200; 72132; 72157; 72158; 76376; 80053; 81001; 82550; 83605; 83735; 84436; 84443; 84484; 85007; 85025; 85651; 86140; 87040; 93005; 96361; 96365; 96375; 99285; A9576; J0696; Q9967

== ENCOUNTER 2024-01-04 09:00 | Outpatient (CLI) | payer MEDICARE, SELFPAY ==
[2024-01-04 18:25] LABS: Basophils # 0.1 K/mm3 (0-0.2); Basophils % 0.6 % (0.1-2.0); Eosinophils # 0.4 K/mm3 (0.0-0.4); Eosinophils % 4.4 % (0.1-12.0); Hematocrit 49.3 % (42.0-52.0); Hemoglobin 16.2 g/dL (14.1-18.0); Lymphocytes # 2.4 K/mm3 (0.7-4.5); Lymphocytes % 30.5 % (10-50); Mean Corpuscular HGB Conc 32.8 g/dL (31.8-35.4); Mean Corpuscular Hemoglobin 33.6 pg (27.0-31.2); Mean Corpuscular Volume 102.6 fl (80-94); Mean Platelet Volume 8.9 fl (7.4-10.4); Monocytes # 0.6 K/mm3 (0.1-1.0); Neutrophils # 4.6 K/mm3 (1.8-7.8); Neutrophils % 57.5 % (37.0-80.0); Platelet Count 222 K/mm3 (142-424)
[2024-01-04 18:54] LABS: Hemoglobin A1C 5.8 % (4.0-6.0)
[2024-01-04 19:13] LABS: Alanine Aminotransferase 32 U/L (12-78); Albumin Level 4.1 g/dl (3.5-5.0); Albumin/Globulin Ratio 1.5 (1.1-1.8); Alkaline Phosphatase 132 U/L (38-126); Anion Gap 14.5 mEq/L (5-15); Aspartate Amino Transferase 35 U/L (17-59); Bilirubin,Total 0.3 mg/dl (0.2-1.3); Blood Urea Nitrogen 15 mg/dl (9-20); Calcium 9.8 mg/dl (8.4-10.2); Carbon Dioxide 27 mmol/L (22.0-30.0); Chloride 99 mmol/L (98-107); Estimated Glomerular Filt Rate 116 ml/min (>60); GFR (African American) 140 ML/MIN (>60); Globulin 2.8 g/dL (1.3-3.2); Glucose 113 mg/dl (74-100); Potassium 4.5 mmoL/L (3.5-5.1); Sodium 136 mmol/L (136-145); Total Protein,Serum 6.9 g/dl (6.3-8.2)
[2024-01-04 19:21] LABS: Free T4 (Free Thyroxine) 1.75 ng/dl (0.78-2.19)
[2024-01-04 19:35] LABS: 25-OH Vitamin D, Total 22.2 ng/mL (30-100)
[2024-01-04 19:44] LABS: Thyroid Stimulating Hormone 0.06 uIU/mL (0.465-4.68)
[2024-01-06 08:19] LABS: Thyroid Peroxidase Antibodies 10 IU/mL (0-34); Triiodothyronine (T3) Free 3.9 pg/mL (2.0-4.4)
[2024-01-11 11:37] LABS: Triiodothyronine (T3) Reverse 36.6
== END 2024-01-04 23:59 | disposition home or self-care (01) ==
LOC: LAB.DROPOF 01-06 09:26
PROVIDERS: PCP Internal Medicine; Visit Provider Internal Medicine
DX: I10 Essential (primary) hypertension (principal); R79.89 Other specified abnormal findings of blood chemistry; E55.9 Vitamin D deficiency, unspecified; E07.9 Disorder of thyroid, unspecified; R73.09 Other abnormal glucose; Z68.24 Body mass index [BMI] 24.0-24.9, adult; F17.210 Nicotine dependence, cigarettes, uncomplicated
CPT/HCPCS: 80053; 82306; 83036; 84439; 84443; 84481; 84482; 85025; 86376

== ENCOUNTER 2024-02-23 13:47 | Outpatient (CLI) | payer MEDICARE, SELFPAY ==
--- NOTE | 2024-02-23 13:47 | US_ITS ---
FINAL REPORT TECHNIQUE: Real-time grayscale and color ultrasound of the thyroid was performed. CLINICAL HISTORY: low tsh COMPARISON: None FINDINGS: The thyroid gland measures 4.9 x 1.8 x 2.3 cm on the right and 5.1 x 1.2 x 2.0 cm on the left. The isthmus measures 0.3 cm. The parenchyma is homogeneous. The thyroid gland is normal in size.. Nodules: There are scattered small benign cysts measuring up to 4 mm. No solid suspicious lesion identified. IMPRESSION: Unremarkable thyroid ultrasound. Reviewed, Interpreted and Dictated by Kell Escalona MD Transcribed by Nita Harrison Authenticated and [facility]
[2024-02-23 15:32] LABS: Thyroid Stimulating Hormone 0.44 uIU/mL (0.465-4.68)
[2024-02-25 10:37] LABS: Thyroid Peroxidase Antibodies 12 IU/mL (0-34); Triiodothyronine (T3) Free 3.1 pg/mL (2.0-4.4)
[2024-02-27 18:10] LABS: Thyroglobulin Level <1.0 IU/mL (0.0-0.9)
== END 2024-02-23 23:59 | disposition home or self-care (01) ==
LOC: RAD 13:47
PROVIDERS: PCP Internal Medicine; Visit Provider Internal Medicine
DX: E05.90 Thyrotoxicosis, unspecified without thyrotoxic crisis or storm (principal); B18.1 Chronic viral hepatitis B without delta-agent; R79.89 Other specified abnormal findings of blood chemistry; R53.83 Other fatigue; E55.9 Vitamin D deficiency, unspecified; I10 Essential (primary) hypertension; F51.01 Primary insomnia
CPT/HCPCS: 36415; 76536; 84439; 84443; 84481; 86376; 86800

== ENCOUNTER 2024-05-08 14:10 | Outpatient (CLI) | payer MEDICARE, SELFPAY ==
[2024-05-08 18:57] LABS: Thyroid Stimulating Hormone 0.33 uIU/mL (0.465-4.68)
[2024-05-11 22:26] LABS: HCV Genotype Charge YES; Hepatitis C Genotype 1a (.)
== END 2024-05-08 23:59 | disposition home or self-care (01) ==
LOC: LAB.DROPOF 05-09 09:34
PROVIDERS: PCP Internal Medicine; Visit Provider Internal Medicine
DX: B18.2 Chronic viral hepatitis C (principal); B18.1 Chronic viral hepatitis B without delta-agent; R79.89 Other specified abnormal findings of blood chemistry; R94.6 Abnormal results of thyroid function studies
CPT/HCPCS: 84443; 87522; 87902

== ENCOUNTER 2024-06-04 10:55 | Outpatient (CLI) | payer MEDICARE, SELFPAY ==
[2024-06-04 19:15] LABS: 25-OH Vitamin D, Total 19.2 ng/mL (30-100)
[2024-06-04 19:28] LABS: Thyroid Stimulating Hormone 0.62 uIU/mL (0.465-4.68)
== END 2024-06-04 23:59 | disposition home or self-care (01) ==
LOC: LAB.DROPOF 06-05 12:08
PROVIDERS: PCP Internal Medicine; Visit Provider Internal Medicine
DX: G47.00 Insomnia, unspecified (principal); E55.9 Vitamin D deficiency, unspecified; Z13.1 Encounter for screening for diabetes mellitus
CPT/HCPCS: 82306; 83036; 84443

== ENCOUNTER 2024-11-26 22:52 | Emergency (ER) | payer MEDICARE, MEDICAID, SELFPAY ==
[2024-11-26 22:57] VITALS: BP 158/94; PULSE 99; RESP 18; TEMP 36.7; O2SAT 98; BMI 22.8
--- NOTE | 2024-11-26 23:00 | XR_ITS ---
PROCEDURE INFORMATION: Exam: XR Right Ankle Exam date and time: 11/26/2024 11:10 PM Age: 59 years old Clinical indication: Pain; Ankle; Right; Additional info: Right ankle injury TECHNIQUE: Imaging protocol: Radiologic exam of the right ankle. Views: 3 or more views. COMPARISON: No relevant prior studies available. FINDINGS: Bones/joints: Normal. No acute fracture identified. Soft tissues: Normal. IMPRESSION: No acute findings.
--- NOTE | 2024-11-26 23:00 | XR_ITS ---
PROCEDURE INFORMATION: Exam: XR Right Foot Exam date and time: 11/26/2024 11:12 PM Age: 59 years old Clinical indication: Pain; Foot; Right; Additional info: Right ankle injury TECHNIQUE: Imaging protocol: Radiologic exam of the right foot. Views: 3 or more views. COMPARISON: CR XR ANKLE RT MIN 3V 11/26/2024 11:10 PM FINDINGS: Bones/joints: No acute fracture identified. Degenerative changes of the 1st MTP joint and heel spurs noted. Soft tissues: Normal. IMPRESSION: No acute findings.
--- NOTE | 2024-11-26 23:32 | ED_ITS ---
Discharge Plan Disposition Patient Disposition: Home, Self-Care Condition: Good Prescriptions Prescriptions: No Action albuterol sulfate 90 mcg/actuation HFA aerosol inhaler 1 inh inhalation QID PRN (Reason: shortness of breath or wheezing) Qty: 8.5 2RF chlorthalidone 25 mg tablet 25 mg PO DAILY Qty: 30 2RF olanzapine 5 mg tablet 5 mg PO HS Qty: 30 2RF varenicline tartrate [Chantix Starting Month Box] 0.5 mg (11)- 1 mg (42) tablets,dose pack See Rx Instructions PO PER PKG DIR Qty: 53 0RF Rx Instructions: PO PER PKG DIR sofosbuvir-velpatasvir [Epclusa] 400-100 mg tablet 1 tab PO DAILY cyclobenzaprine 10 mg tablet 10 mg PO TID PRN (Reason: muscle spasm) Qty: 90 3RF losartan 25 mg tablet 25 mg PO DAILY 90 Days Qty: 90 4RF amlodipine 5 mg tablet 5 mg PO DAILY Qty: 30 2RF cholecalciferol (vitamin D3) 125 mcg (5,000 unit) capsule 250 mcg PO DAILY 90 Days Qty: 180 2RF Referrals Follow up/Referrals: Provider,MD Molly [Primary Care Provider] - See instructions Sekou Wakefield MD [Staff Physician] - See instructions (needs consistent PCP followup since peppin is no longer here) Activity Restrictions/Add. Instructions Additional Instructions/Restrictions: You were evaluated in the ER and are appropriate for discharge at this time. Take Tylenol or ibuprofen if needed for pain, do not exceed the recommended dose on the bottle. Drink water and eat a small snack each time you take these medications to avoid side effects. Wear the brace as needed. Make sure you do range of motion exercises for your ankle 3 times a day. Call Dr. Wakefield's office for reevaluation and close follow-up. He will also be able to help you more with your chronic back problems. Return to the ER with new, worsening, or otherwise concerning symptoms. Clinical Impressions Clinical Impression: Foot pain, right, Ankle pain, right Instructions Patient Instructions: DI for Ankle Pain Print Language Print Language: Guatemalan Discharge ED Provider: Mir Quintana Adult [facility] General Chief complaint: PAIN Stated complaint: AO 11/25/24 injury right foot Time Seen by Provider: 11/26/24 23:31 Mode of Arrival: Wheelchair Source of Information: Patient Description of Symptoms (Recalled from ER Triage Doc. by RN): Pt presents for evalution of right ankle pain after rolling his ankle last night History of Present Illness HPI narrative: 59-year-old male presents to the ER for complaints of right foot and ankle pain. Reportedly last night he was walking when he rolled his ankle to the outside and has since had pain. He is able to ambulate on it but it causes pain. Family at bedside is concerned that the patient has chronic back pain and was supposed to have surgery but allegedly refused it. Patient reports he is not having any worsening back pain than normal. He states he is always unsteady on his feet and has falls especially when he does not use his walker. He states last night when he fell he did not use his walker. Family is more concerned about the patient being unsteady on his feet because he refused surgery. Review of previous records demonstrates patient has bilateral sacroiliitis as well as lumbar disc disease. He has previously refused SI injections as well as other interventions and has simply been prescribed pain control from previous PCPs. Patient reports no new concerns with his back or legs and states his unsteadiness is not worse than normal. No urinary or bowel incontinence or retention. No saddle anesthesia. He is alert and oriented, he states he has not struck his head or loss consciousness. Does not take blood thinners. He is only complaining of his right foot pain. No medications taken prior to arrival. No other complaints or concerns. Related Data Home Medications ?Medication ?Instructions ?Recorded ?Confirmed sofosbuvir 400 mg-velpatasvir 100 1 tab PO DAILY 11/10/23 06/04/24 mg tablet (Epclusa) Previous Rx's ?Medication ?Instructions ?Recorded cyclobenzaprine 10 mg tablet 10 mg PO TID PRN muscle spasm #90 02/06/24 tabs losartan 25 mg tablet 25 mg PO DAILY 90 days #90 tabs 02/06/24 albuterol sulfate 90 mcg/actuation 1 inh inhalation QID PRN shortness 03/05/24 aerosol inhaler of breath or wheezing #8.5 grams chlorthalidone 25 mg tablet 25 mg PO DAILY #30 tabs 03/05/24 amlodipine 5 mg tablet 5 mg PO DAILY #30 tabs 04/03/24 olanzapine 5 mg tablet 5 mg PO HS #30 tabs 10/08/24 varenicline tartrate 0.5 mg (11)-1 See Rx Instructions PO PER PKG DIR 05/08/24 mg (42) tablets in a dose pack #53 tabs (Chantix Starting Month Box) cholecalciferol (vitamin D3) 125 250 mcg (2 x 125 mcg (5,000 unit)) 06/07/24 mcg (5,000 unit) capsule PO DAILY 90 days #180 caps Allergies Allergy/AdvReac Type Severity Reaction Status Date / Time tramadol (TRAMADOL) Allergy Mild NA-NAUSEA/V Verified 06/04/24 10:37 OMITING PFSH PFSH Disclaimer: The information contained in this section may have been updated after the patient was seen, as this information can be updated by other users. Medical History Abnormal results of thyroid function studies History of substance abuse Vitamin D deficiency HTN (hypertension) Hepatitis C Surgical History H/O cervical spinal arthrodesis Family History Other Unknown family medical history Social History Smoking Status: Current every day smoker tobacco type: cigarettes packs per day: 1 alcohol intake: never substance use type: marijuana and opiates current occupational status: unemployed Travel in the last 8 weeks?: None Have you lived/traveled outside [place] in past 30 days?: No Contact w/someone who lives/traveled outside US past 30 days?: No Exposure to someone with infectious disease in past 14 days?: No Do you have a fever (greater than 100.4 F or 38 C)?: No Have you tested positive for COVID-19?: No Exposed to someone with COVID-19 in past 14 days?: No Do you have a sore throat?: No Do you have a cough?: No Do you have any weakness?: No Do you have any diarrhea?: No Are you experiencing any unusual bleeding?: No Do you have any muscle aches/pain?: No Do you have any abdominal pain?: No Are you experiencing loss of taste or smell?: No Other Medical History Have you received the Flu Vaccine for this season: Yes Have you received the Pneumonia Vaccine: No ROS Obtained: Yes Systems reviewed as appropriate & no additional complaints except as documented Per HPI Physical Exam General General appearance: alert and in no apparent distress Head Head exam: atraumatic and normocephalic Eye Eye exam: Present PERRL and EOMI ENT ENT exam: Present mucous membranes moist Neck Neck exam: Present normal inspection and full ROM Chest Chest inspection: Present symmetric chest wall rise Respiratory Respiratory exam: Present normal lung sounds bilaterally; Absent respiratory distress, wheezes or stridor Cardiovascular Cardiovascular exam: Present regular rate and normal rhythm Abdominal Exam Abdominal exam: Present soft; Absent distention or tenderness Extremities Exam Extremities exam: Present full ROM and other (Patient has mild diffuse right foot tenderness with no deformity, swelling, or bruising. Right ankle exam normal. Neurovascularly intact throughout.); Absent edema or joint swelling Back Exam Back exam: Absent tenderness, CVA tenderness (R), CVA tenderness (L) or vertebral tenderness (No deformity or step-off) Neurological Exam Neurological exam: Present alert, oriented X3, normal gait and other (Normal ffwbqr-yo-bvma and nkfy-yx-fomh, GCS 15, NIH 0); Absent motor sensory deficit Psychiatric Psychiatric exam: Present normal affect and normal mood Skin Skin exam: Present warm and dry Medical Decision Making Medical Records Medical records reviewed: Yes I reviewed the patient's medical records. Screening: Per USPSTF and CDC recommendations, given the prevalence of disease in our region, it is our hospital?s policy to screen for HIV and viral Hepatitis for all patients aged 18 and over and those with ongoing risk factors. MR Comment: See HPI Ori Inquiry Pt receiving controlled substance: No Vital Signs: 11/26/24 22:57 Temperature 98.1 F Temperature Source Oral Pulse Rate [Right] 99 H Respiratory Rate 18 Blood Pressure [Right Arm] 158/94 H Blood Pressure Mean [Right Arm] 115 Blood Pressure Source [Right Arm] Automatic Cuff Blood Pressure Position [Right Arm] Sitting 02 Sat by Pulse Oximetry 98 Oxygen Delivery Method Room Air Orders (Tests/Meds): ORDERS Category Date Time Status Ankle XR -Right minimum 3 Views [XR ankle RT min 3V] Exams 11/26/24 23:00 Completed Stat XR foot RT min 3V Stat Exams 11/26/24 23:00 Completed Medical Decision Narrative: In summary, this 59-year-old male with comorbidities including abnormal TSH, hypertension, history of disc disease, bilateral sacroiliitis which increases overall morbidity presents to the emergency department today with right foot and ankle pain after fall yesterday. On initial evaluation patient is hemodynamically stable, afebrile, GCS 15, no neurologic deficits, normal krwxiy-dk-uula and sxww-ey-iegj, diffuse discomfort throughout the right foot without deformity, swelling, bruising, mild diffuse ankle pain with range of motion but range of motion full with no swelling, neurovascularly intact, patient has some pain with bilateral straight leg raise but nothing excruciating, no red flag signs for cauda equina though this was considered on my differential. Differential diagnosis includes but is not limited to fracture, dislocation, other osseous injury, degenerative changes, also considered sprain, strain. Based on these concerns, I ordered x-ray right foot and ankle. Patient's exam is otherwise reassuring and I do not believe further workup is indicated at this time. He has a history of noncompliance and refusing recommended interventions so I recommended strongly to the patient and family that he follow-up closely with his PCP for further monitoring and evaluation of his previously known problems. X-rays of the right lower extremity were personally interpreted and I do not appreciate acute osseous injury, see radiology for final interpretation. Patient was placed in an ankle brace for comfort. He was able to ambulate at his baseline with a walker and is steady on his feet doing so. He reports feeling more comfortable with the gel brace in place. He was instructed on range of motion exercises. He is appropriate for discharge at this time. No new prescriptions provided at this time. He was given instructions on continued symptomatic monitoring and management, follow-up including referral to Dr. Wakefield since Dr. Do is no longer practicing, as well as strict return precautions for the ER. He indicated understanding and the patient was discharged in stable condition. Critical Care Critical Care Time Critical Care Time: No
[2024-11-27 00:24] VITALS: BP 145/87; PULSE 98; RESP 16; TEMP 36.7; O2SAT 99
== END 2024-11-27 00:25 | disposition home or self-care (01) ==
PROVIDERS: Emergency Provider Emergency Medicine
DX: M25.571 Pain in right ankle and joints of right foot (principal); X50.1XXA Overexertion from prolonged static or awkward postures, initial encounter
CPT/HCPCS: 73610; 73630; 99283

== ENCOUNTER 2024-12-13 15:36 | Outpatient (CLI) | payer MEDICARE, MEDICAID, SELFPAY ==
[2024-12-13 19:07] LABS: Basophils # 0.1 K/mm3 (0-0.2); Basophils % 0.7 % (0.1-2.0); Eosinophils # 0.3 Kmm3 (0.0-0.4); Eosinophils % 3.6 % (0.1-12.0); Hematocrit 51.6 % (42.0-52.0); Hemoglobin 17.4 g/dL (14.1-18.0); Immature Granulocytes # 0.02 10^3uL; Immature Granulocytes % 0.3 %; Lymphocytes # 2.3 K/mm3 (0.7-4.5); Lymphocytes % 31.9 % (10-50); Mean Corpuscular HGB Conc 33.7 g/dL (31.8-35.4); Mean Corpuscular Hemoglobin 32.5 pg (27.0-31.2); Mean Corpuscular Volume 96.3 fl (80-94); Mean Platelet Volume 10.4 fl (7.4-10.4); Monocytes # 0.5 K/mm3 (0.1-1.0); Monocytes % 6.4 % (1.7-9.3); Neutrophils # 4.1 K/mm3 (1.8-7.8); Neutrophils % 57.1 % (37.0-80.0); Nucleated Red Blood Cells # 0 10^3/uL; Nucleated Red Blood Cells % 0 %; Platelet Count 227 K/mm3 (142-424); Red Blood Count 5.36 M/mm3 (4.60-6.20); Red Cell Distribution Width 13.2 % (11.5-17.5); Red Cell Distribution Width-SD 47.2 fL; White Blood Count 7.2 K/mm3 (4.8-10.8)
[2024-12-13 20:03] LABS: Chloride 101 mmol/L (98-107); Potassium 4.8 mmoL/L (3.5-5.1); Sodium 137 mmol/L (136-145)
[2024-12-13 20:05] LABS: Blood Urea Nitrogen 9 mg/dl (9-20); Estimated Glomerular Filt Rate 99 ml/min (>60); GFR (African American) 120 ML/MIN (>60)
[2024-12-13 20:06] LABS: Alanine Aminotransferase 63 U/L (12-78); Albumin/Globulin Ratio 1.7 (1.1-1.8); Alkaline Phosphatase 104 U/L (38-126); Anion Gap 9.8 mEq/L (5-15); Aspartate Amino Transferase 73 U/L (17-59); Bilirubin,Total 0.8 mg/dl (0.2-1.3); Calcium 9.9 mg/dl (8.4-10.2); Carbon Dioxide 31 mmol/L (22.0-30.0); Globulin 2.9 g/dL (1.3-3.2); Glucose 99 mg/dl (74-100); Total Protein,Serum 7.9 g/dl (6.3-8.2)
[2024-12-13 20:23] LABS: Free T4 (Free Thyroxine) 1.24 ng/dl (0.78-2.19)
[2024-12-13 20:38] LABS: Thyroid Stimulating Hormone 0.74 uIU/mL (0.465-4.68)
[2024-12-13 22:52] LABS: Vitamin B12 682 pg/mL (239-931)
[2024-12-13 23:14] LABS: Folate 7.34 ng/mL
[2024-12-14 13:45] LABS: RPR W/RFX Titers Nonreactive (Nonreactive)
== END 2024-12-13 23:59 | disposition home or self-care (01) ==
LOC: LAB.DROPOF 12-14 11:14
PROVIDERS: PCP Family Medicine; Visit Provider Family Medicine
DX: R94.6 Abnormal results of thyroid function studies (principal); R79.89 Other specified abnormal findings of blood chemistry; E11.9 Type 2 diabetes mellitus without complications; E78.5 Hyperlipidemia, unspecified; E03.9 Hypothyroidism, unspecified; F03.90 Unspecified dementia, unspecified severity, without behavioral disturbance, psychotic disturbance, mood disturbance, and anxiety
CPT/HCPCS: 80053; 82607; 82746; 84439; 84443; 85025; 86592

== ENCOUNTER 2025-01-01 10:59 | Outpatient (CLI) | payer MEDICARE, MEDICAID, SELFPAY ==
--- NOTE | 2025-01-01 11:00 | CT_ITS ---
FINAL REPORT TECHNIQUE: Thin section axial images were obtained from skull base to vertex without contrast. Coronal reconstruction images were obtained from the axial data. Exam was performed using dose reduction techniques such as automated exposure control, adjustment of the mA and kV according to patient size, and use of iterative reconstruction technique. CLINICAL HISTORY: mental status changes FINDINGS: There is no mass effect or midline shift. There is no hydrocephalus. 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 There is no intracranial hemorrhage. There is age-indeterminate left cerebellar hypodensity. Subacute ischemia not excluded. There is no acute soft tissue abnormality. There is mucoperiosteal thickening of the maxillary sinus which is likely chronic. No acute osseous abnormality is seen. IMPRESSION: No acute intracranial hemorrhage. Age-indeterminate left cerebellar hypodensity, subacute ischemia not excluded. Consider MRI for further evaluation. Reviewed, Interpreted and Dictated by Marcelle Alvarado MD Transcribed by Marta Malik Authenticated and [facility]
== END 2025-01-01 23:59 | disposition home or self-care (01) ==
LOC: RAD 10:59
PROVIDERS: PCP Family Medicine; Visit Provider Family Medicine
DX: R90.89 Other abnormal findings on diagnostic imaging of central nervous system (principal); R41.82 Altered mental status, unspecified
CPT/HCPCS: 70450

== ENCOUNTER 2025-01-11 12:11 | Outpatient (CLI) | payer MEDICARE, MEDICAID, SELFPAY ==
--- OUTSIDE RECORDS SUMMARY | 2025-01-09 10:44 | XMS_ITS | Encounter Summary ---
Author Organization Healthcare Address [address] [place] [address] Care Team Providers Care Alumni Relations Officer Name Role Phone Giancarlo Ngo MD Primary Care Provider [phone] Encounter Details Date Type Department Care Team (Latest Contact Info) Description 01/09/2025 10:44 AM EDT - 01/09/2025 11:59 PM EDT [facility] [address], [address] [place] [phone] Degenerative lumbar spinal stenosis Discharge Disposition: Home or Self Care Social History Tobacco Use Types Packs/Day Years Used Date Smoking Tobacco: Every Day Cigarettes Smokeless Tobacco: Never Alcohol Use Standard Drinks/Week Comments No 0 (1 standard drink = 0.6 oz pur e alcohol) Humiliation, Afraid, Rape, and Kick questionnair e Answer Date Recorded Within the last year, have y ou been afraid of your partner or ex-partner? Patient declined 10/10/2023 Within the last year, have y ou been humiliated or emotionally abused in other ways by your partner or ex-partner? Patient declined 10/10/2023 Within the last year, have y ou been kicked, hit, slapped, or otherwise physically hurt by your partner or ex-partner? Patient declined 10/10/2023 Within the last year, have y ou been raped or forced to have any kind of sexual activity by your partner or ex-partner? Patient declined 10/10/2023 Hunger Vital Sign Answer Date Recorded Within the past 12 months, y ou worried that your food would run out before you got the money to buy more. Patient declined Within the past 12 months, t he food you bought just didn't last and you didn't have money to get more. Patient declined 06/2024 PRAPARE - Transportation Answer Date Re corded In the past 12 months, has l ack of transportation kept you from medical appointments or from getting medications? Patient declined 10/10/2023 In the past 12 months, has l ack of transportation kept you from meetings, work, or from getting things needed for daily living? Patient declined 10/10/2023 Housing Stability Vital Sign Answer Randolph e Recorded In the last 12 months, was t here a time when you were not able to pay the mortgage or rent on time? Patient refused 10/10/19 24 Number of Places Lived in the Last Year Not on f ile 10/10/2023 In the last 12 months, was t here a time when you did not have a steady place to sleep or slept in a nursing home (including now)? Patient refused 10/10/2023 Utilities Answer Date Recorded In the past 12 months has th e [employer], gas, oil, or water company threatened to shut off services in your home? Patient refused 10/10/2023 Sex and Gender Information Value Date Recorded Sex Assigned at Not on file Legal Sex Male 7:42 PM EDT Gender Identity Not on file Sexual Orientation Not on file documented as of this encounter Medications at Time of Discharge amLODIPine (Norvasc) 5 MG tablet Take 1 tablet by mouth daily. 12/21/2024 diclofenac (Voltaren) 75 MG EC tablet Take 1 tablet by mouth 2 times a day. 12/28/2024 gabapentin (Neurontin) 300 MG capsule Take 1 capsule (300 mg) by mouth 1 (one) time each day. losartan (Cozaar) 25 MG tablet Take 1 tablet (25 mg) by mouth 1 (one) time each day. meloxicam (Mobic) 15 MG tablet 12/13/2024 metoprolol tartrate (Lopressor) 25 MG tablet Take 1 tablet by mouth 2 times a day. 12/28/2024 oxyCODONE (Roxicodone) 5 MG immediate release tablet Take 1 tablet (5 mg) by mouth 2 (two) times a day. documented as of this encounter Plan of Treatment Not on file documented as of this encounter Procedures Procedure Name Priority Date/Time Associated Diagnosis Comments XR LUMBAR SPINE 2 OR 3 VIEWS Routine 01/09/2025 11:15 AM EDT Degenerative lumbar spinal stenosis documented in this encounter Results * XR Lumbar Spine 2 or 3 Views (01/09/2025 11:15 AM EDT) Anatomical Region Laterality Modality Spine, L-spine Digital Radiogra phy Impressions 01/09/2025 11:54 AM EDT 1. Disc space narrowing and ankylosis at L1-L2. 2. Moderate degenerative disc changes at L3-L4 and L4-L5 with grade 1 anterolisthesis at L4-L5. 3. Chronic compression deformity at T12. 4. Anterior cervical discectomy and fusion at C5-C6 without complication. CRITICAL RESULT: No. COMMUNICATION: Per this written report. Drafted by Keith Duncan MD on 01/09/2025 11:47 AM Final report signed by Keith Duncan MD on 01/09/2025 11:54 AM Narrative 01/09/2025 11:54 AM EDT CLINICAL INDICATION: back pain TECHNIQUE: XR SCOLIOSIS ENTIRE SPINE 2 OR 3 VIEWS, XR LUMBAR SPINE 2 OR 3 VIEWS COMPARISON: MRI dated October 06, 2023. FINDINGS: 2 views of the lumbar spine show disc space narrowing and ankylosis at L1-L2. Moderate degenerative disc changes at L3-L4 and L4-L5. Grade 1 anterolisthesis at L4-L5. Compression deformity at T12. No instability in flexion or extension. No bone destruction. 2 views of the spine show no scoliotic curve. The patient is leaning to the right with coronal balance that project to the right of midline. Sagittal balance is neutral. Anterior cervical discectomy and fusion at C5-C6. Sacroiliac joints are normal. Procedure Note Keith Duncan MD - 01/09/2025 CLINICAL INDICATION: back pain TECHNIQUE: XR SCOLIOSIS ENTIRE SPINE 2 OR 3 VIEWS, XR LUMBAR SPINE 2 OR 3 VIEWS COMPARISON: MRI dated October 06, 2023. FINDINGS: 2 views of the lumbar spine show disc space narrowing and ankylosis atL1-L2. Moderate degenerative disc changes at L3-L4 and L4-L5. Grade 1anterolisthesis at L4-L5. Compression deformity at T12. No instability inflexion or extension. No bone destruction. 2 views of the spine show no scoliotic curve. The patient is leaning tothe right with coronal balance that project to the right of midline.Sagittal balance is neutral. Anterior cervical discectomy and fusion atC5-C6. Sacroiliac joints are normal. IMPRESSION: 1.Disc space narrowing and ankylosis at L1-L2. 2.Moderate degenerative disc changes at L3-L4 and L4-L5 with grade 1anterolisthesis at L4-L5. 3.Chronic compression deformity at T12. 4.Anterior cervical discectomy and fusion at C5-C6 withoutcomplication. CRITICAL RESULT: No. COMMUNICATION: Per this written report. Drafted by Keith Duncan MD on 01/09/2025 11:47 AM Final report signed by Keith Duncan MD on 01/09/2025 11:54 AM Genesis Tucker STOPER IMG XR PROCEDURES Final Resu lt documented in this encounter Visit Diagnoses Diagnosis Degenerative lumbar spinal stenosis Spinal stenosis of lumbar region documented in this encounter Care Teams Alumni Relations Officer Relationship Specialty Start Date End Date Giancarlo Ngo MD [address] [place] [address] PCP - General 12/12/20 documented as of this encounter
--- OUTSIDE RECORDS SUMMARY | 2025-01-09 10:44 | XMS_ITS | Encounter Summary ---
Author Organization Healthcare Address [address] [place] [address] Care Team Providers Care Head Of Stock Name Role Phone Giancarlo Ngo MD Primary Care Provider [phone] Encounter Details Date Type Department Care Team (Latest Contact Info) Description 01/09/2025 10:44 AM EDT - 01/09/2025 11:59 PM EDT Hospital Encounter [facility] [address], [address] [place] [phone] Degenerative lumbar spinal stenosis Discharge Disposition: Home [...] place to sleep or slept in a fpc (including now)? Patient refused 10/10/2023 Utilities Answer Date Recorded In the past 12 months has th e [employer], gas, oil, or water company threatened to [...] Name Priority Date/Time Associated Diagnosis Comments XR SCOLIOSIS ENTIRE SPINE 2 OR 3 VIEWS Routine 01/09/2025 11:15 AM EDT Degenerative lumbar spinal stenosis documented in this encounter Results * XR Scoliosis Entire Spine 2 or 3 Views (01/09/2025 11:15 AM EDT) Anatomical Region Laterality Modality Spine Digital Radiogra phy Impressions 01/09/2025 11:54 AM [...] Keith Duncan MD on 01/09/2025 11:54 AM eGnesis Tucker INSPECTOR OF DREDGING IMG XR PROCEDURES Final Resu lt documented in this encounter Visit Diagnoses Diagnosis Degenerative lumbar spinal stenosis Spinal stenosis of lumbar region documented in this encounter Care Teams Head Of Stock Relationship Specialty Start Date End Date Giancarlo Ngo MD [address] [place] [address] PCP - General 12/12/20 documented as of this encounter
--- OUTSIDE RECORDS SUMMARY | 2025-01-09 10:45 | XMS_ITS | Encounter Summary ---
Author Organization [facility] Address [address] [id number] Care Team Providers Care Supervisor Electronics Testing Name Role Phone Giancarlo Ngo MD Primary Care Provider [phone] Reason for Referral * Imaging (Routine) - Authorized Specialty Diagnoses / Procedures Referred By Contac t Referred To Contact Diagnoses Degenerative lumbar spinal stenosis Procedures MR Lumbar Spine wo IV Contrast [place] MD [address] [address] Phone: tel: fax: Referral ID Status Reason Start Date Expiration Date V isits Requested Visits Authorized [id number] Authorized 01/09/2025 07/11/2026 1 1 * Consultation (Routine) - Authorized Specialty Diagnoses / Procedures Referred By Contac t Referred To Contact Physical Therapy Diagnoses Degenerative lumbar spinal stenosis [place] MD [address] [address] Phone: tel: fax: Referral ID Status Reason Start Date Expiration Date Visits Requested Visits Authorized [id number] Authorized Consult and Treat 01/09/2025 07/11/2026 1 1 Reason for Visit * Consultation (Routine) - Closed Specialty Diagnoses / Procedures Referred By Contac t Referred To Contact Neurosurgery Diagnoses Spinal stenosis of lumbar region Sekou Wakefield MD [address] [place] [address] Phone: tel: fax: Referral ID Status Reason Start Date Expiration Date V isits Requested Visits Authorized [id number] Closed Specialty Services Required 12/18/2024 06/19/2026 1 1 Encounter Details Date Type Department Care Team (Late st Contact Info) Description 01/09/2025 10:45 AM EDT Consult [place] [facility] [address], [address] [place] [address] [place] MD [address] [place] [address] Degenerative lumbar spinal stenosis (Primary Dx) Social History Tobacco Use Types Packs/Day Years [...] place to sleep or slept in a usp (including now)? Patient refused 10/10/2023 Utilities Answer [...] 11:28 AM EDT documented in this encounter Plan of Treatment [...] Keith Duncan MD on 01/09/2025 11:54 AM us Genesis Tucker ASSISTANT PROFESSOR OF BIOLOGY IMG XR PROCEDURES Final Resu lt * [...] MD on 01/09/2025 11:54 AM Genesis Tucker ASSISTANT PROFESSOR OF BIOLOGY IMG XR PROCEDURES Final Resu lt documented in this encounter Visit Diagnoses Diagnosis Degenerative lumbar spinal stenosis- Primary Spinal stenosis of lumbar region Degenerative lumbar spinal stenosis Spinal stenosis of lumbar region Degenerative lumbar spinal stenosis Spinal stenosis of lumbar region documented in this encounter Care Teams Supervisor Electronics Testing Relationship Specialty Start Date End Date Giancarlo Ngo MD [address] [place] [address] PCP - General 12/12/20 documented as of this encounter
[2025-01-11 19:32] LABS: HIV Combo NEGATIVE (Negative)
[2025-01-11 19:48] LABS: Hepatitis C Ab Qual. W/ RFX REACTIVE (Negative)
--- OUTSIDE RECORDS SUMMARY | 2025-01-11 22:49 | XMS_ITS | Encounter Summary ---
Author Organization [facility] Address [address] [place] [address] Care Team Providers Care Education Managers Name Role Phone Giancarlo Ngo MD Primary Care Provider [phone] Encounter Details Date Type Department Care Team (Latest Contact Info) Description 01/09/2025 Travel Social History Tobacco Use Types Packs/Day Years [...] on file documented as of this encounter Plan of Treatment Not on file documented as of this encounter Visit Diagnoses Not on filedocumented in this encounter Care Teams Education Managers Relationship Specialty Start Date End Date Giancarlo Ngo MD [address] [place] [address] PCP - General 12/12/20 documented as of this encounter
--- OUTSIDE RECORDS SUMMARY | 2025-01-11 22:49 | XMS_ITS | Clinical Summary ---
Author Organization [facility] Address [address] [place] [address] Care Team Providers Care Condemnation Engineer Name Role Phone Giancarlo Ngo MD Primary Care Provider [phone] Allergies Active Allergy Reactions Criticality Noted Date Comments Hydrocodone-Acetaminophen Nausea 10/06/2023 Tramadol Nausea And Vomiting Low 01/25/2011 Medications gabapentin (Neurontin) 300 MG capsule Take 1 capsule (300 mg) by mouth 1 (one) time each day. Active losartan (Cozaar) 25 MG tablet Take 1 tablet (25 mg) by mouth 1 (one) time each day. Active oxyCODONE (Roxicodone) 5 MG immediate release tablet Take 1 tablet (5 mg) by mouth 2 (two) times a day. Active metoprolol tartrate (Lopressor) 25 MG tablet Take 1 tablet by mouth 2 times a day. 12/28/2024 Active meloxicam (Mobic) 15 MG tablet 12/13/2024 Active diclofenac (Voltaren) 75 MG EC tablet Take 1 tablet by mouth 2 times a day. 12/28/2024 Active amLODIPine (Norvasc) 5 MG tablet Take 1 tablet by mouth daily. 12/21/2024 Active Active Problems Problem Noted Date Diagnosed Date Traumatic rhabdomyolysis 10/09/2023 Hepatitis C 10/08/2023 Elevated creatine kinase 10/08/2023 Degenerative lumbar spinal stenosis 10/07/2023 Spinal stenosis at L4-L5 level 10/06/2023 Encounters Date Type Department Care Team Description 01/09/2025 10:45 AM EDT Consult [place] [facility] [address] [place] [address] [place] Park MD Degenerative lumbar spinal stenosis (Primary Dx) 01/09/2025 10:44 AM EDT - 01/09/2025 11:59 PM EDT Hospital Encounter [facility] [address], [address] [place] [address] Degenerative lumbar spinal stenosis Discharge Disposition: Home or Self Care 01/09/2025 10:44 AM EDT - 01/09/2025 11:59 PM EDT Hospital Encounter [facility] [address] [place] [address] Degenerative lumbar spinal stenosis Discharge Disposition: Home or Self Care 01/09/2025 Travel from Last 3 Months Immunizations Immunization Administration Dates Next Due Tdap 10/20/2019 Family History Medical History Relation Name Comments Conversions - Other Other 1 Back pro blem Stroke Other 2 Hypertension Other 3 Other cancer Other 4 Heart attack Other 5 Relation Name Status Comments Other 1 Other 2 Other 3 Other 4 Other 5 Social History Tobacco Use Types Packs/Day Years Used Date Smoking Tobacco: Every Day Cigarettes Smokeless Tobacco: Never Tobacco Cessation:Ready to Q uit: Not Asked; Counseling Given: Not Answered Alcohol Use Standard Drinks/Week Comments No 0 [...] place to sleep or slept in a detention (including now)? Patient refused 10/10/2023 Utilities Answer Date Recorded In the past 12 months has th e electric, gas, oil, or water company threatened to shut off services in your home? Patient refused 10/10/2023 Sex and Gender Information Value Date Recorded Sex Assigned at Not on file Legal Sex Male 7:42 PM EDT Gender Identity Not on file Sexual Orientation Not on file Last Filed Vital Signs Vital Sign Reading Time Taken Comments Blood Pressure 168/84 01/09/2025 11:28 AM EDT Pulse 97 10/10/2023 5:30 AM EDT Temperature 37.1 C (98.7 F) 10/10/2023 5:30 AM EDT Respiratory Rate 17 10/10/2023 5:30 AM EDT Oxygen Saturation 96% 10/10/2023 5:30 AM EDT Inhaled Oxygen Concentration - - Weight 76.5 kg (168 lb 10.4 oz) 025 11:28 AM EDT Height 170.2 cm (5' 7 ) 01/09/2025 11:2 8 AM EDT Body Mass Index 26.41 01/09/2025 11:28 AM EDT Plan of Treatment Health Maintenance Due Date Last Done Comments [facility]-Depression Screening 1965 [facility]-/Child/Adol SDOH Screenings 1965 [facility]-Obesity Intervention 10/18/1971 [facility]- SDOH Screenings 10/18/1983 [facility]-Adult SDOH Screenings 10/18/1983 [facility]-Hepatitis A Vaccines (1 of 2 - Risk 2-dose series) 1984 [facility]-Hepatitis B Vaccines (1 of 3 - 19+ 3-dose series) 1984 [facility]-Pneumococcal Vaccine: 50 + Years (1 of 2 - PCV) 1984 CT Colonography 2010 Colonoscopy 2010 FIT-DNA 2010 FIT 2010 FOBT 2010 Sigmoidoscopy 2010 [facility]-Colorectal Cancer Screening 2010 [facility]-Zoster Vaccines (1 of 2) 10/18/2015 [facility]-Medicare Annual Wellness (AWV) 07/08/2022 07/08/2021 [id number] Vaccine (3 - 2023- season) 2024 07/08/2021, 03/17/2021 [facility]-Influenza Vaccine (Seaso n Ended) 2025 04/27/2017 [facility]-DTaP,Tdap,and Td Vaccine s (2 - Td or Tdap) 10/19/2029 10/20/2019 [facility]-HIV Screening Completed 10/06/2023, 01/04/2014 HPV Vaccines Aged Out No longer eligi ble based on patient's age to complete this topic [facility]-HIB Vaccines Aged Out No longer e ligible based on patient's age to complete this topic [facility]-IPV Vaccines Aged Out No longer e ligible based on patient's age to complete this topic [facility]-Rotavirus Vaccines Aged Out No lo nger eligible based on patient's age to complete this topic Procedures Procedure Name Priority Date/Time Associated Diagnosis Comments XR SCOLIOSIS ENTIRE SPINE 2 OR 3 VIEWS Routine 01/09/2025 11:15 AM EDT Degenerative lumbar spinal stenosis XR LUMBAR SPINE 2 OR 3 VIEWS Routine 01/09/2025 11:15 AM EDT Degenerative lumbar spinal stenosis ED HIV 1/2 ANTIBODY/ANTIGEN SCREEN WITH REFLEX TO HIV I/II DIFFERENTIATION STAT 10/06/2023 11:03 PM EST from Last 3 Months or Most Recently Relevant to Health Maintenance Results * XR Scoliosis Entire Spine 2 [...] MD on 01/09/2025 11:54 AM us Genesis Jason Tucker RAILROAD WATCHMAN IMG XR PROCEDURES Final Resu lt * [...] MD on 01/09/2025 11:54 AM Genesis Tucker RAILROAD WATCHMAN IMG XR PROCEDURES Final Resu lt * ED HIV 1/2 Antibody/Antigen Screen w/Reflex to HIV 1/2 Differentiation (10/06/2023 11:03 PM EST) HIV 1 & 2 Antibody/Antigen Screen Non Reactive Non Reactive 10/06/2023 11:52 PM EST [facility] Comment:Screening for HIV 1 & 2 antibodies, and P24 antigen is NONREACTIVE. No confirmatory testing is required. Blood Venous blood specimen / Unknown Venipuncture / Unknown 10/06/2023 11:03 PM EST 10/06/2023 11:17 PM EST us Dee Barton MD LAB BLOOD ORDERABLES Final R esult [facility] [address] [place] [address] from Last 3 Months or Most Recently Relevant to Health Maintenance Insurance Care Teams Condemnation Engineer Relationship Specialty Start Date End Date Giancarlo Ngo MD [address] [place] [address] PCP - General 12/12/20
--- OUTSIDE RECORDS SUMMARY | 2025-01-11 22:49 | XMS_ITS | Clinical Summary ---
Author Organization [facility] [place] [facility] Address [address] [place] [address] Phone Care Team Providers Care Auto Clutch Rebuilder Name Role Phone Giancarlo Ngo MD Primary Care Provider [phone] Allergies Active Allergy Reactions Criticality Noted Date Comments Tramadol Nausea And Vomiting 01/25/2011 Medications amitriptyline (ELAVIL) 25 mg Oral TabletIndications :Insomnia, persistent Take 1 Tablet by mouth nightly. 30 Tablet 2 07/08/2021 Active diclofenac (VOLTAREN) 75 mg Oral Tablet, Delayed Release (E.C.)Indications :Degenerative disc disease, lumbar,Degenerati ve disc disease, cervical Take 1 Tablet by mouth 2 times daily (with meals). 60 Tablet 2 07/14/2021 Active tiZANidine (ZANAFLEX) 2 mg Oral Tablet TAKE 1 TABLET BY MOUTH EVERY 6 HOURS NEEDED 60 Tablet 1 08/06/2021 Active lisinopriL-hydroc hlorothiazide (PRINZIDE;ZESTORE TIC) 10-12.5 mg Oral TabletIndications :Primary hypertension TAKE 1 TABLET BY MOUTH TWICE A DAY 180 Tablet 1 10/19/2021 Active Active Problems Problem Noted Date Diagnosed Date Substance abuse 07/14/2021 Overview (07/14/2021): Opioid dependency with passive use of other drugs. Opioid dependence 07/14/2021 Overview (07/14/2021): Oxy 10-15mg BID. Started 2007. Tolerance and dependency has increased. Assessment & Plan (07/14/2021 12:42 PM EST): Takes oxycodone 10-15mg twice a day, been taking them daily since 2007 No hx of detox or inpatient programs. He is not interested in complete detox of opioids. He is primarily interested in pain mgmt. Explained that due to his recreational use of drugs he most likely would not be a good candidate for pain mgmt and I would recommend establishing with suboxone clinic. He was given list of several treatment facilities [facility] Insomnia, persistent 07/08/2021 Overview (07/08/2021): Start Elavil for dual management of chronic pain and insomnia. Degenerative disc disease, lumbar 07/08/2021 Overview (07/14/2021): Continue elavil Start voltaren and robaxin Consider chiropractor. HTN (hypertension) 02/16/2011 Overview (07/14/2021): Increased lisinopril/hctz Labs ok Needs to stop smoking, limit salt. Assessment & Plan (07/08/2021 10:30 AM EST): given single dose of clonidine in office for blood pressure control. he left after labs so we were not able to get repeat BP. 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 Medical History Medical History Date Comments Degenerative disc disease, lumbar 07/08/2021 Substance abuse (HCC) 07/14/2021 Family History Medical History Relation Name Comments Diabetes Father Relation Name Status Comments Father Alive Social History Tobacco Use Types Packs/Day Years Used Date Smoking Tobacco: Every Day Cigarettes 0.3 40 Smokeless Tobacco: Never Alcohol Use Standard Drinks/Week Comments No 0 (1 standard drink = 0.6 oz pur e alcohol) Overall Financial Resource Strain (CARDIA) Answe r Date Recorded How hard is it for you to pa y for the very basics like food, housing, medical care, and heating? Hard 07/09/2021 PHQ-2 Answer Date Recorded PHQ-2 Total Score 0 07/08/2021 [facility] - Occupational Stress Questionnaire Answer Date Recorded Do you feel stress - tense, restless, nervous, or anxious, or unable to sleep at night because your mind is troubled all the time - these days? Only a little 07/09/2021 Exercise Vital Sign Answer Date Recorde d On average, how many days pe r week do you engage in moderate to strenuous exercise (like a brisk walk)? 0 days 07/09/2021 On average, how many minutes do you engage in exercise at this level? 0 min 07/09/2021 Hunger Vital Sign Answer Date Recorded Within the past 12 months, y ou worried that your food would run out before you got the money to buy more. Never true 07/09/20 21 Within the past 12 months, t he food you bought just didn't last and you didn't have money to get more. Never true 07/09/2021 [facility]AP[facility] - Transportation Answer Date Re corded In the past 12 months, has l ack of transportation kept you from medical appointments or from getting medications? No 04/2021 In the past 12 months, has l ack of transportation kept you from meetings, work, or from getting things needed for daily living? No 07/09/2021 Sexually Active Control Partners Comments Yes Female Sex and Gender Information Value Date Recorded Sex Assigned at Not on file Legal Sex Male 1:40 AM EDT Gender Identity Not on file Sexual Orientation Not on file Obstetrics History Last Filed Vital Signs Vital Sign Reading Time Taken Comments Blood Pressure 170/92 07/14/2021 9:21 AM EST Pulse 76 07/14/2021 9:21 AM EST Temperature 36.1 C (96.9 F) 07/14/2021 9:21 AM EST Respiratory Rate 18 07/14/2021 9:21 AM EST Oxygen Saturation 98% 07/14/2021 9:21 AM EST Inhaled Oxygen Concentration - - Weight 74.8 kg (165 lb) 07/14/2021 9:21 AM EST Height 170.2 cm (5' 7 ) 07/14/2021 9:21 AM EST Body Mass Index 25.84 07/14/2021 9:21 AM EST Plan of Treatment Health Maintenance Due Date Last Done Comments Annual Wellness Exam 1968 Hepatitis B Vaccine (1 of 3 - 19+ 3-dose series) 1984 Cologuard 2010 Colon Cancer Screening 2010 Colonoscopy 2010 FIT 2010 Sigmoidoscopy 2010 Virtual Colonography 2010 Pneumococcal Vaccine 50+ (1 of 1 - PCV) 10/18/2015 Zoster (1 of 2) 10/18/2015 COVID-19 Vaccine (2 - 2023-2 5 season) 2024 07/08/2021 Influenza Vaccine (Season Ended) 2025 04/27/20 17 DTaP/TDaP/Td (2 - Td or Tdap) 10/19/2029 10/20/2019 Meningococcal B Vaccine Aged Out No l onger eligible based on patient's age to complete this topic Goals Goal Patient Goal Type Associated Problems Recent Progress Patient-Stated? Author Blood Pressure < 140/90 Blood Pressure 170/92(2020 9:21 AM EST) No Milana, Lisa, SECOND CRUSHER Maintain a healthy diet, exercise regularly and maintain an ideal body weight General No [place] Lisa, SECOND CRUSHER Stay Tobacco Free Lifestyle No [place] Lisa, SECOND CRUSHER Care Teams Auto Clutch Rebuilder Relationship Specialty Start Date End Date Giancarlo Ngo MD [address] [place] [address] [place] [address] PCP - General Emergency Medicine 02/08/24
[2025-01-13 08:10] LABS: Hepatitis B Surface Antigen Negative (Negative)
== END 2025-01-11 23:59 | disposition home or self-care (01) ==
LOC: LAB.DROPOF 22:47
PROVIDERS: PCP Family Medicine; Visit Provider Family Medicine
DX: Z11.59 Encounter for screening for other viral diseases (principal)
CPT/HCPCS: 86803; 87389; 87522

== ENCOUNTER 2025-02-06 12:45 | Outpatient (CLI) | payer MEDICARE, MEDICAID, SELFPAY ==
--- OUTSIDE RECORDS SUMMARY | 2025-01-09 10:44 | XMS_ITS | Encounter Summary ---
Author Organization Healthcare Address [address] [place] [address] Care Team Providers Care Coffee Machine Technician Name Role Phone Giancarlo Ngo MD Primary Care Provider [phone] Encounter Details Date Type Department Care Team (Latest Contact Info) Description 01/09/2025 10:44 AM EDT - 01/09/2025 11:59 PM EDT [facility] Encounter [facility] [address], [address] [place] [phone] Degenerative lumbar spinal stenosis Discharge Disposition: Home [...] the past 12 months has th e [employer], gas, oil, or water company threatened to [...] MD on 01/09/2025 11:54 AM Genesis Tucker CUSTOM FEED MILL OPERATOR HELPER IMG XR PROCEDURES Final Resu lt documented in this encounter Visit Diagnoses Diagnosis Degenerative lumbar spinal stenosis Spinal stenosis of lumbar region documented in this encounter Additional Health Concerns Assessment Noted Time A Body Mass Index follow-up plan has been documented for the patient 01/19/2025 11:00 PM EDT documented as of this encounter Care Teams Coffee Machine Technician Relationship Specialty Start Date End Date Giancarlo Ngo MD [address] [place] [id number] PCP - General 12/12/20 documented as of this encounter
--- OUTSIDE RECORDS SUMMARY | 2025-01-09 10:44 | XMS_ITS | Encounter Summary ---
Author Organization Healthcare Address [address] [place] [address] Care Team Providers Care Sap Data Architect Name Role Phone Giancarlo Ngo MD Primary Care Provider [phone] Encounter Details Date Type Department Care Team (Latest Contact Info) Description 01/09/2025 10:44 AM EDT - 01/09/2025 11:59 PM EDT Hospital Encounter [facility] [address], [address] [place] [phone] Degenerative lumbar spinal stenosis Discharge Disposition: Home [...] place to sleep or slept in a alf (including now)? Patient refused 10/10/2023 Utilities Answer Date Recorded In the past 12 months has th e [employer], gas, oil, or water company threatened to [...] MD on 01/09/2025 11:54 AM Genesis Tucker SUPERVISOR CORE SHOP IMG XR PROCEDURES Final Resu lt documented in this encounter Visit Diagnoses Diagnosis Degenerative lumbar spinal stenosis Spinal stenosis of lumbar region documented in this encounter Additional Health Concerns Assessment Noted Time A Body Mass Index follow-up plan has been documented for the patient 01/19/2025 11:00 PM EDT documented as of this encounter Care Teams Sap Data Architect Relationship Specialty Start Date End Date Giancarlo Ngo MD [address] [place] [address] PCP - General 12/12/20 documented as of this encounter
--- OUTSIDE RECORDS SUMMARY | 2025-01-09 10:45 | XMS_ITS | Encounter Summary ---
Author Organization [facility] Address [address] [id number] Care Team Providers Care Tower Control Operator Name Role Phone Giancarlo Ngo MD Primary Care Provider [phone] Reason for Referral * Imaging (Routine) - Authorized Specialty Diagnoses / Procedures Referred By Contac t Referred To Contact Diagnoses Degenerative lumbar spinal stenosis Procedures MR Lumbar Spine wo IV Contrast Marge Esparza MD [address] [address] Phone: tel: fax: Referral ID Status Reason Start Date Expiration Date V isits Requested Visits Authorized [id number] Authorized 01/09/2025 07/11/2026 1 1 * Consultation (Routine) - Authorized Specialty Diagnoses / Procedures Referred By Contac t Referred To Contact Physical Therapy Diagnoses Degenerative lumbar spinal stenosis Marge Esparza MD [address] [address] Phone: tel: fax: Referral ID Status Reason Start Date Expiration Date Visits Requested Visits Authorized [id number] Authorized Consult and Treat 01/09/2025 07/11/2026 1 1 Reason for Visit * Consultation (Routine) - Closed Specialty Diagnoses / Procedures Referred By Contac t Referred To Contact Neurosurgery Diagnoses Spinal stenosis of lumbar region Sekou Wakefield MD [address] [place] [address] Phone: tel: fax: Referral ID Status Reason Start Date Expiration Date V isits Requested Visits Authorized [id number] Closed Specialty Services Required 12/18/2024 06/19/2026 1 1 Encounter Details Date Type Department Care Team (Late st Contact Info) Description 01/09/2025 10:45 AM EDT Consult [place] [facility] [address], [address] [place] [address] Marge Esparza MD [address] [place] [address] Spinal stenosis of lumbar region with neurogenic claudication (Primary Dx); Lumbar radiculopathy; Degeneration of intervertebral disc of lumbar region with lower extremity pain; Degenerative lumbar spinal stenosis; Neural foraminal stenosis of lumbar spine Social History Tobacco Use Types Packs/Day Years [...] place to sleep or slept in a retirement (including now)? Patient refused 10/10/2023 Utilities Answer Date Recorded In the past 12 months has th e electric, gas, oil, or water company threatened to shut off services in your home? Patient refused 10/10/2023 Sex and Gender Information Value Date Recorded Sex Assigned at Not on file Legal Sex Male 7:42 PM EDT Gender Identity Not on file Sexual Orientation Not on file documented as of this encounter Last Filed Vital Signs Vital Sign Reading Time Taken Comments Blood Pressure 168/84 01/09/2025 11:28 AM EDT Pulse - - Temperature - - Respiratory Rate - - Oxygen Saturation - - Inhaled Oxygen Concentration - - Weight 76.5 kg (168 lb 10.4 oz) 025 11:28 AM EDT Height 170.2 cm (5' 7 ) 01/09/2025 11:2 8 AM EDT Body Mass Index 26.41 01/09/2025 11:28 AM EDT documented in this encounter Miscellaneous Notes * Addendum Note - Marge Esparza MD - 01/09/2025 10:45 AM EDTAddended by: MARGE ESPARZA on: 01/19/2025 11:01 PM Modules accepted: Level of Service * Progress Notes - Deion-Nidhi Jimenes MD - 01/09/2025 10:45 AM EDT Neurosurgery Clinic Note ? Visit Reason: Neurogenic claudication with severe L4-L5 stenosis HPI: Etienne Castro is a 59 y.o. male previously seen by neurosurgery as an inpatient in September 2023for rapidly progressive bilateral lower extremity weakness. Imaging at the time showed severe bilateral foraminal and central canal stenosis at L4-5. He was offered decompressive laminectomy but leftthe hospital against medical advice. He presents now with ongoing lumbar pain and symptoms consistent with neurogenic claudication. He reports cramping pain down the back of his legs. He has not pursued any conservative measure such as injections or physical therapy since his hospital discharge. 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 He denies any fevers or systemic symptomscurrently. Past Medical History[1] Surgical History[2] Current Scheduled Medications[3] Current Continuous Medications[4] Current PRN Medications[5] Allergies[6] Visit Vitals BP (!) 168/84 Ht 1.702 m (5' 7 ) Wt 76.5 kg (168 lb 10.4 oz) BMI 26.41 kg/m?? Smoking Status Every Day BSA 1.9 m?? General Physical Exam Constitutional No acute distress. Patient is appropriate historian and cooperative throughout exam.Well nourished, well groomed. Alert and oriented x4. Head Normocephalic and atraumatic. Eyes Pupils are equal, round, and reactive to light. Neck No tracheal deviation or JVD noted. Cardiovascular Minimal to no peripheral edema, intact distal pulses Pulmonary/Chest No increased effort noted, no shortness of breath Neurological Alert and oriented to person, place, and time Skin Skin is warm and dry Psychiatric Normal mood and affect, behavior and judgment MUSCULOSKELETAL EXAM: Upper Extremity Motor Strength Right Left C5: Deltoid 4+/5 4+/5 C6: Biceps 5/5 5/5 C7: Triceps 5/5 5/5 C8: Rv Repairer 5/5 5/5 T1: Intrinsics 5/5 5/5 Lower Extremity Motor Strength Right Left L2: Hip flexion (Iliopsoas) 5/5 5/5 L3: Knee extension (Quad) 5/5 5/5 L4: Ankle DF (TA) 5/5 5/5 L5: Great Toe DF (EHL) 5/5 5/5 S1: Ankle Pf, Foot Eversion (Peroneal longus/brevis) 5/5 5/5 S2: Great toe flexion (FHL), Knee flexion 5/5 5/5 Sensation Right Left L2: Proximal anterior thigh Normal Normal L3: Mid anterior thigh Normal Normal L4: Medial leg/foot, great toe (Saphenous n.) Normal Normal L5: Dorsum of mid foot Normal Normal S1: Lateral leg/foot, little toe, Back of leg (Sural n.) Normal Normal Reflexes Right Left C5: Biceps 2/4 2/4 C6: Brachialis 2/4 2/4 C7: Triceps 2/4 2/4 L4: Patellar 2/4 2/4 S1: Achilles 2/4 2/4 SLR Negative Negative Clonus Negative Negative Hoffmans Negative Negative Imaging: X-rays (today) 2 views of the lumbar spine show disc space narrowing and ankylosis at L1-L2. Moderate degenerativedisc changes at L3-L4 and L4-L5. Grade 1 anterolisthesis at L4-L5. Compression deformity at T12. Noinstability in flexion or extension. No bone destruction. 2 views of the spine show no scoliotic curve. The patient is leaning to the right with coronal balance that project to the right of midline. Sagittal balance is neutral. Anterior cervical discectomy and fusion at C5-C6. Sacroiliac joints are normal. No updated lumbar spine MRI available at this time. Assessment and Plan:? Etienne Castro is a 59 y.o. male with a history of psoas abscess, IVDA, and leaving hospital [facility] in Sep 2023. No current signs of spinal instability or infection on exam. His overall presentation today is consistent with neurogenic claudication due to severe canal and foraminal stenosis at theL4-L5 level. We reviewed the natural history of this condition in detail with the patient today. Hewill start a trial of physical therapy. We also counseled him at length regarding the requirement preoperatively to stop smoking. We will request an updated lumbar MRI to help guide further management recommendations. Follow up will be scheduled in clinic thereafter. [] Ordered updated lumbar spine MRI [] Provided physical therapy script [] Strongly encouraged smoking cessation and abstinence from substance use [] Will discuss potential surgical options after MRI review and conservative trial period Follow-up information was provided and the patient knows to call the clinic with any questions or concerns. Nidhi Del Cid MD PGY-3, Neurosurgery [1] Past Medical History: Diagnosis Date Hypertension [2] Past Surgical History: Procedure Laterality Date BACK SURGERY N/A Back Surgery from [facility] HAND SURGERY N/A Hand Surgery from [facility] NECK SURGERY N/A Neck Surgery from [facility] [3] [4] [5] [6] Allergies Allergen Reactions Lortab [Hydrocodone-Acetaminophen] Nausea Tramadol Nausea And Vomiting Cosigned by Marge Esparza MD at 01/19/2025 10:58 PM EDT Associated attestation - Marge Esparza MD - 01/19/2025 10:58 PM EDT I saw and evaluated the patient with the resident/fellow. I discussed the case with the resident/fellow and agree with the findings and plan as documented. documented in this encounter Plan of Treatment Scheduled Orders Name Type Priority Associated Diagnoses Orde r Schedule MR Lumbar Spine wo IV Contrast Imaging Routine Degenerative lumbar spinal stenosis Expected: 01/09/2025 (Approximate), Expires: 07/11/2026 Scheduled Referrals Name Type Priority Associated Diagnoses Order Schedule Ambulatory referral to Physical Therapy Outpatient Referral Routine Degenerative lumbar spinal stenosis 1 Occurrences starting 01/09/2025 until 07/13/2026 documented as of this encounter Results * XR Scoliosis Entire [...] MD on 01/09/2025 11:54 AM Genesis Tucker JIRA ADMINISTRATOR IMG XR PROCEDURES Final Resu lt * XR Lumbar Spine 2 or 3 [...] Sacroiliac joints are normal. Procedure Note Keith Dnucan MD - 01/09/2025 CLINICAL INDICATION: back pain [...] Duncan MD on 01/09/2025 11:54 AM Genesis Jason Tucker JIRA ADMINISTRATOR IMG XR PROCEDURES Final Resu lt documented in this encounter Visit Diagnoses Diagnosis Spinal stenosis of lumbar region with neurogenic claudication- Primary Lumbar radiculopathy Thoracic or lumbosacral neuritis or radiculitis, unspecified Degeneration of intervertebral disc of lumbar region with lower extremity pain Degenerative lumbar spinal stenosis Spinal stenosis of lumbar region Neural foraminal stenosis of lumbar spine Degenerative lumbar spinal stenosis Spinal stenosis of lumbar region Degenerative lumbar spinal stenosis Spinal stenosis of lumbar region documented in this encounter Additional Health Concerns Assessment Noted Time A Body Mass Index follow-up plan has been documented for the patient 01/19/2025 11:00 PM EDT documented as of this encounter Care Teams Tower Control Operator Relationship Specialty Start Date End Date Giancarlo Ngo MD [address] [place] [address] PCP - General 12/12/20 documented as of this encounter
--- OUTSIDE RECORDS SUMMARY | 2025-02-06 12:47 | XMS_ITS | Clinical Summary ---
Author Organization [facility] Address [address] [place] [address] Phone Care Team Providers Care Security Specialist Name Role Phone Giancarlo Ngo MD Primary Care Provider [phone] Allergies Active Allergy Reactions Criticality Noted Date [...] Date Recorded PHQ-2 Total Score 0 07/08/2021 [facility] - Occupational Stress Questionnaire Answer Date Recorded [...] 07/14/2021 9:21 AM EST Plan of Treatment Upcoming Encounters Date Type Department Care Team (Late st Contact Info) Description 02/20/2025 11:30 AM EDT Appointment [facility] [address] [place] [address] Jefferson Park MD [address] [place] [address] Health Maintenance Due Date Last Done Comments Wellness Exam Medicare 1968 Hepatitis B Vaccine (1 of 3 - 19+ 3-dose series) 1984 Cologuard 2010 Colon Cancer Screening 2010 Colonoscopy 2010 FIT 2010 Sigmoidoscopy 2010 Virtual Colonography 2010 Pneumococcal Vaccine 50+ (1 of 1 - PCV) 10/18/2015 Zoster (1 of 2) 10/18/2015 COVID-19 Vaccine (2 - 2023-2 5 season) 2024 07/08/2021 Influenza Vaccine (#1) 2025 04/27/2017 DTaP/TDaP/Td (2 - Td or Tdap) 10/19/2029 10/20/2019 Meningococcal B Vaccine Aged Out No l onger eligible based on patient's age to complete this topic Goals Goal Patient Goal Type Associated Problems Recent Progress Patient-Stated? Author Blood Pressure < 140/90 Blood Pressure 170/92(2020 9:21 AM EST) No Lisa Cortés APRN Maintain a healthy diet, exercise regularly and maintain an ideal body weight General No [place]ony[place]isa, CATERING ASSOCIATE Stay Tobacco Free Lifestyle No Lisa Cortés APRN Insurance [facility] [employer]PLE[employer] [place] Care Teams Security Specialist Relationship Specialty Start Date End Date Giancarlo Ngo MD [address] [place] [id number] PCP - General Emergency Medicine 02/08/24
--- OUTSIDE RECORDS SUMMARY | 2025-02-06 12:47 | XMS_ITS | Encounter Summary ---
Author Organization [facility] Address [address] [place] [address] Care Team Providers Care Edi Coordinator Name Role Phone Giancarlo Ngo MD Primary Care Provider [phone] Encounter Details Date Type Department Care Team [...] place to sleep or slept in a senior living (including now)? Patient refused 10/10/2023 Utilities Answer [...] Diagnoses Not on filedocumented in this encounter Additional Health Concerns Assessment Noted Time A Body Mass Index follow-up plan has been documented for the patient 01/19/2025 11:00 PM EDT documented as of this encounter Care Teams Edi Coordinator Relationship Specialty Start Date End Date Giancarlo Ngo MD [address] [place], [place] [id number] PCP - General 12/12/20 documented as of this encounter
--- OUTSIDE RECORDS SUMMARY | 2025-02-06 12:47 | XMS_ITS | Encounter Summary ---
Author Organization Healthcare Address [address] [place] [id number] Care Team Providers Care Karate Teacher Name Role Phone Giancarlo Ngo MD Primary Care Provider [phone] Reason for Visit * Reason Onset Date Comments HCN - Patient Message 01/16/2025 Call back Encounter Details Date Type Department Care Team (Late st Contact Info) Description 01/16/2025 Telephone [place] [facility] [address] [place] [address] Jefferson Park MD [address] [place] [address] [facility] - Patient Message (Call back ) Social History Tobacco Use Types Packs/Day Years [...] or rent on time? Patient refused 10/10/19 Number of Places Lived in the Last Year Not on f ile 10/10/2023 In the last 12 months, was t here a time when you did not have a steady place to sleep or slept in a longterm (including now)? Patient refused 10/10/2023 Utilities Answer [...] on file documented as of this encounter Miscellaneous Notes * Telephone Encounter - Genesis Tucker APRN - 01/22/2025 10:52 AM EDT Spoke to patient received lorazepam from primary care physician. They do not need anything additional at this time. * Telephone Encounter - Kaci Porter APRN, DNP - 01/16/2025 4:32 PM EDT Spoke with . He wants to have the MRI done at [facility] instead. He is scheduled to have MRI Head there as ordered by PCP and would like to try to have it done same day. Advised would reach out to teamto try to get information sent there to review. Verbalized understanding. He will need oral valium for MRI related to claustrophobia. * Telephone Encounter - Kayy Mtz - 01/16/2025 4:09 PM EDT Patient Phone Message Reason for Call: is requesting a call back to discuss MRI order being done in [facility]. Best contact number and optimal time of day to reach caller: [phone] anytime Note: Please do not reply to this message. Follow-up communication and further actions as a result of this message need to be communicated with the patient directly, if the patient is not active onMyChart. If the patient is active on MyChart, they will receive notification of the communication/outcome via [employer]. documented in this encounter Plan of Treatment Not on file documented as of this encounter Visit Diagnoses Not on filedocumented in this encounter Additional Health Concerns Assessment Noted Time A Body Mass Index follow-up plan has been documented for the patient 01/19/2025 11:00 PM EDT documented as of this encounter Care Teams Karate Teacher Relationship Specialty Start Date End Date Giancarlo Ngo MD [address] [place] [address] PCP - General 12/12/20 documented as of this encounter
--- OUTSIDE RECORDS SUMMARY | 2025-02-06 12:48 | XMS_ITS | Clinical Summary ---
Author Organization [facility] Address [address] [place] [address] Care Team Providers Care Agent Licensing Clerk Name Role Phone Giancarlo Ngo MD Primary Care Provider [phone] Allergies Active Allergy Reactions Criticality Noted Date [...] Encounters Date Type Department Care Team Description 01/16/2025 Telephone [place] [facility] [address], [address] [place] [address] Jefferson Park MD [facility] - Patient Message (Call back ) 01/09/2025 10:45 AM EDT Consult [place] [facility] [address], [address] [place] [address] Jefferson Park MD Spinal stenosis of lumbar region with neurogenic claudication (Primary Dx); Lumbar radiculopathy; Degeneration of intervertebral disc of lumbar region with lower extremity pain; Degenerative lumbar spinal stenosis; Neural foraminal stenosis of lumbar spine 01/09/2025 10:44 AM EDT - 01/09/2025 11:59 PM EDT Hospital Encounter [facility] Radiology [address], [address] [place] [address] Degenerative lumbar spinal stenosis Discharge Disposition: Home or Self Care 01/09/2025 10:44 AM EDT - 01/09/2025 11:59 PM EDT Hospital Encounter [facility] Radiology [address], [address] [place] [address] Degenerative lumbar spinal stenosis Discharge Disposition: Home [...] place to sleep or slept in a snf (including now)? Patient refused 10/10/2023 Utilities Answer [...] [facility]-Depression Screening 1965 [facility]-/Child/Adol SDOH Screenings 1965 [facility]- SDOH Screenings 10/18/1983 [facility]-Adult SDOH Screenings [...] 10/18/2015 [facility]-Medicare Annual Wellness (AWV) 07/08/2022 07/08/2021 [id number] Vaccine ( season) 2024 07/08/2021, 03/17/2021 [facility]-Influenza Vaccine (#1) 2025 04/27/2017 [facility]-DTaP,Tdap,and Td Vaccine s (2 - Td or Tdap) 10/19/2029 10/20/2019 [facility]-HIV Screening Completed 10/06/2023, 01/04/2014 [facility]-Obesity Intervention Completed 01/09/2025 HPV Vaccines Aged Out No longer eligi [...] MD on 01/09/2025 11:54 AM Genesis Tucker SOURCING COORDINATOR IMG XR PROCEDURES Final Resu lt * [...] on 01/09/2025 11:54 AM us Genesis Tucker SOURCING COORDINATOR IMG XR PROCEDURES Final Resu lt * [...] ORDERABLES Final R esult [facility] [address] [place] [address] from Last 3 Months or Most Recently Relevant to Health Maintenance Insurance MEDICARE Care Teams Agent Licensing Clerk Relationship Specialty Start Date End Date Giancarlo Ngo MD [address] [place] [address] PCP - General 12/12/20
--- NOTE | 2025-02-06 13:00 | CA_ITS ---
FINAL REPORT TECHNIQUE: Mckinney scale, color and spectral doppler images of the bilateral carotid arteries were obtained. CLINICAL HISTORY: Abn Head CT. Smoker COMPARISON: None FINDINGS: Peak systolic velocity in the right internal carotid artery is 154 cm/sec. The internal carotid to common carotid artery ratio is 1.4. There is no significant carotid artery stenosis and mild to moderate plaque formation. The right vertebral artery is normal in direction. Peak systolic velocity in the left internal carotid artery is 137 cm/sec. The internal carotid to common carotid artery ratio is 1.3. There is no significant carotid artery stenosis and mild to moderate plaque formation. The left vertebral artery is normal in direction. IMPRESSION: No ultrasound evidence of hemodynamically significant carotid artery stenosis. Normal peak systolic velocities and normal internal to common carotid artery ratios bilaterally. Reviewed, Interpreted and Dictated by Dwight Barragan MD Transcribed by Shirlene Bella Authenticated and . [facility]
== END 2025-02-06 23:59 | disposition home or self-care (01) ==
LOC: RT 12:46
PROVIDERS: PCP Family Medicine; Visit Provider Family Medicine
DX: R93.0 Abnormal findings on diagnostic imaging of skull and head, not elsewhere classified (principal); F17.200 Nicotine dependence, unspecified, uncomplicated; Z86.73 Personal history of transient ischemic attack (TIA), and cerebral infarction without residual deficits
CPT/HCPCS: 93880

== ENCOUNTER 2025-02-13 12:42 | Outpatient (CLI) | payer MEDICARE, MEDICAID, SELFPAY ==
--- NOTE | 2025-02-13 12:58 | MR_ITS ---
FINAL REPORT TECHNIQUE: Multiplanar MR without contrast CLINICAL HISTORY: chronic lbp FINDINGS: Sagittal images show normal vertebral height. Alignment is normal. Marrow signal pattern is unremarkable. L1-2: Mild annular disc bulge. Mild central canal stenosis. L2-3: Mild annular disc bulge and mild facet overgrowth. Mild central canal stenosis and mild neuroforaminal narrowing. L3-4: Mild annular disc bulge and mild facet overgrowth. Mild central canal stenosis and mild neuroforaminal narrowing. L4-5: Moderate annular disc bulge. Severe facet overgrowth. Severe central canal stenosis and bilateral neuroforaminal narrowing. L5-S1: Mild annular disc bulge and facet arthropathy. IMPRESSION: Degenerative changes, most advanced at L4-5 with severe central canal stenosis. Reviewed, Interpreted and Dictated by Kell Escalona MD Transcribed by Екатерина Brown Authenticated and [facility]
[2025-02-13 13:09] LABS: Hematocrit 49.5 % (42.0-52.0); Hemoglobin 17.0 g/dL (14.1-18.0); Immature Granulocytes % 0.4 %; Mean Corpuscular HGB Conc 34.3 g/dL (31.8-35.4); Mean Corpuscular Hemoglobin 32.5 pg (27.0-31.2); Mean Corpuscular Volume 94.6 fl (80-94); Nucleated Red Blood Cells % 0 %; Platelet Count 240 K/mm3 (142-424); Red Blood Count 5.23 M/mm3 (4.60-6.20); Red Cell Distribution Width-SD 44.1 fL; White Blood Count 7.9 K/mm3 (4.8-10.8)
[2025-02-13 13:19] LABS: Chloride 98 mmol/L (98-107)
[2025-02-13 13:20] LABS: Albumin Level 4.5 g/dl (3.5-5.0); INR 0.99 (0.9-1.1); Potassium 3.8 mmoL/L (3.5-5.1); Prothrombin Time 11.0 seconds (10.1-12.5); Sodium 138 mmol/L (136-145)
[2025-02-13 13:22] LABS: Blood Urea Nitrogen 7 mg/dl (9-20); Creatinine,Serum 0.70 mg/dl (0.66-1.25); Estimated Glomerular Filt Rate 115 ml/min (>60); GFR (African American) 140 ML/MIN (>60)
[2025-02-13 13:23] LABS: Alanine Aminotransferase 56 U/L (12-78); Albumin/Globulin Ratio 1.4 (1.1-1.8); Alkaline Phosphatase 91 U/L (38-126); Anion Gap 12.8 mEq/L (5-15); Aspartate Amino Transferase 51 U/L (17-59); Bilirubin,Total 0.4 mg/dl (0.2-1.3); Calcium 9.7 mg/dl (8.4-10.2); Carbon Dioxide 31 mmol/L (22.0-30.0); Globulin 3.2 g/dL (1.3-3.2); Glucose 112 mg/dl (74-100); Total Protein,Serum 7.7 g/dl (6.3-8.2)
--- NOTE | 2025-02-13 14:30 | MR_ITS ---
FINAL REPORT TECHNIQUE: Multiplanar MR, without and with gadolinium enhancement CLINICAL HISTORY: abnormal head ct, headaches and dizzy COMPARISON: 01/01/2025 FINDINGS: Diffusion sequences show no signal abnormality to indicate acute infarct. There is encephalomalacia from old infarcts involving the right occipital lobe and left cerebellum. There is an old lacunar infarct in the right periventricular white matter. There is mild generalized atrophy and chronic microvascular changes. No mass, hemorrhage or edema is seen. Ventricles are normal. Major vascular flow voids are intact. Following contrast administration, no mass or abnormal enhancement is seen. IMPRESSION: Chronic infarcts as above without acute process. Reviewed, Interpreted and Dictated by Kell Escalona MD Transcribed by Екатерина Brown Authenticated and [facility]
[2025-02-13] MEDS: SODIUM CHLORIDE 0.9% 10ML SYR (RAD ONLY) 10 ML IV (15:25)
[2025-02-13] MEDS: GADOTERIDOL INJ 20ML SYRINGE 15 ML IV (15:25)
[2025-02-14 05:15] LABS: Hep A Ab, Total Negative (Negative); Hep B Core Ab, Total Positive (Negative); Hep B Surface Ab, Qual Non Reactive (.)
== END 2025-02-13 23:59 | disposition home or self-care (01) ==
LOC: RAD 12:43
PROVIDERS: PCP Family Medicine; Visit Provider Family Medicine
DX: M47.816 Spondylosis without myelopathy or radiculopathy, lumbar region (principal); R93.0 Abnormal findings on diagnostic imaging of skull and head, not elsewhere classified; B19.20 Unspecified viral hepatitis C without hepatic coma; Z86.73 Personal history of transient ischemic attack (TIA), and cerebral infarction without residual deficits
CPT/HCPCS: 36415; 70553; 72148; 80053; 85025; 85610; 86704; 86706; 86708; 87902; A9576